=== PATIENT | male | born 1945 | race Asian ===

== ENCOUNTER 2019-09-12 20:07 | Inpatient (IN) | payer MEDICARE, OTHER ==
[~2019-09-12] VITALS: Ht 165.1 cm; Wt 63.5 kg
[~2019-09-12 20:07] MED LIST: ANTIVERT25 MG ORAL; D5 1/2NS w/KCl 20mEq 1,000 ML IV SCH; VALIUM2 MG ORAL
[2019-09-12 20:10] VITALS: BP 131/94
--- NOTE | 2019-09-12 20:13 | Emergency Room Report ---
History of Present Illness General Chief Complaint: Vomiting Source: Patient (Jose Maria Padilla MD) Present Illness HPI 74-year-old male history of hypertension history of gastric ulcers presents with acute nausea vomiting and coughing x2 days no fevers no chills no chest pain or shortness of breath no known aggravating relieving factors severity is moderate, constant patient presents for evaluation (Jos eMaria Padilla MD) Allergies: Coded Allergies: No Known Allergies (Unverified , 09/12/19) COVID-19 Screening Contact w/high risk pt: No Recent Travel to affected area: No Experienced COVID-19 symptoms?: No (Jose Maria Padilla MD) Patient History Past Medical History: see triage record Reviewed Nursing Documentation: PMH: Agreed; PSxH: Agreed (Jose Maria Padilla MD) Nursing Documentation-PMH Hx Hypertension: Yes - hdl Hx Diabetes: Yes (Jose Maria Padilla MD) Review of Systems All Other Systems: negative except mentioned in HPI (Jose Maria Padilla MD) Physical Exam Vital Signs Date Time Temp Pulse Resp B/P (MAP) Pulse Ox O2 Delivery O2 Flow Rate FiO2 09/12/19 20:04 98.2 100 18 131/94 (106) 98 Room Air Sp02 EP Interpretation: reviewed, normal General Appearance: well appearing, no apparent distress, alert Head: normocephalic, atraumatic Eyes: bilateral eye PERRL, bilateral eye EOMI ENT: uvula midline, moist mucus membranes Neck: supple, thyroid normal, supple/symm/no masses Respiratory: lungs clear, no respiratory distress, no retraction, no accessory muscle use Cardiovascular #1: normal peripheral pulses, regular rate, rhythm, no edema, no gallop, no murmur Gastrointestinal: soft, no guarding, no rebound, tenderness - epigastrically Musculoskeletal: normal inspection Neurologic: alert, oriented x3 Psychiatric: mood/affect normal Skin: no rash, warm/dry (Jose Maria Padilla MD) Medical Decision Making Diagnostic Impression: Primary Impression: Vomiting Qualified Codes: R11.10 - Vomiting, unspecified Additional Impressions: Intractable abdominal pain Pancreatitis Qualified Codes: K85.90 - Acute pancreatitis without necrosis or infection, unspecified Duodenitis ER Course 74-year-old male presents with epigastric pain differential diagnosis includes pancreatitis, duodenitis, ACS EKG unremarkable CT scan shows duodenitis Patient admitted to Dr. Garnett for pain control and supportive care. Laboratory Tests Test 09/12/19 20:22 09/12/19 21:45 09/12/19 21:55 09/13/19 06:30 White Blood Count 13.1 K/UL (4.8-10.8) H 9.9 K/UL (4.8-10.8) Red Blood Count 4.67 M/UL (4.70-6.10) L 3.85 M/UL (4.70-6.10) L Hemoglobin 14.4 G/DL (14.2-18.0) 12.3 G/DL (14.2-18.0) L Hematocrit 43.1 % (42.0-52.0) 34.9 % (42.0-52.0) L Mean Corpuscular Volume 92 FL (80-99) 91 FL (80-99) Mean Corpuscular Hemoglobin 30.9 PG (27.0-31.0) 32.0 PG (27.0-31.0) H Mean Corpuscular Hemoglobin Concent 33.4 G/DL (32.0-36.0) 35.3 G/DL (32.0-36.0) Red Cell Distribution Width 11.9 % (11.6-14.8) 10.8 % (11.6-14.8) L Platelet Count 307 K/UL (150-450) 254 K/UL (150-450) Mean Platelet Volume 6.2 FL (6.5-10.1) L 5.0 FL (6.5-10.1) L Neutrophils (%) (Auto) 89.6 % (45.0-75.0) H 73.5 % (45.0-75.0) Lymphocytes (%) (Auto) 6.8 % (20.0-45.0) L 15.5 % (20.0-45.0) L Monocytes (%) (Auto) 3.2 % (1.0-10.0) 10.2 % (1.0-10.0) H Eosinophils (%) (Auto) 0.0 % (0.0-3.0) 0.3 % (0.0-3.0) Basophils (%) (Auto) 0.5 % (0.0-2.0) 0.5 % (0.0-2.0) Sodium Level 140 MMOL/L (136-145) 141 MMOL/L (136-145) Potassium Level 3.4 MMOL/L (3.5-5.1) L 3.7 MMOL/L (3.5-5.1) Chloride Level 95 MMOL/L (98-107) L 104 MMOL/L (98-107) Carbon Dioxide Level 27 MMOL/L (21-32) 30 MMOL/L (21-32) Anion Gap 18 mmol/L (5-15) H 7 mmol/L (5-15) Blood Urea Nitrogen 33 mg/dL (7-18) H 31 mg/dL (7-18) H Creatinine 1.6 MG/DL (0.55-1.30) H 1.3 MG/DL (0.55-1.30) Estimated Glomerular Filtration Rate 42.5 mL/min (>60) 54.0 mL/min (>60) Glucose Level 238 MG/DL (74-106) H 158 MG/DL (74-106) H Lactic Acid Level 2.80 mmol/L (0.4-2.0) H 2.20 mmol/L (0.66-2.22) 1.50 mmol/L (0.4-2.0) Calcium Level 9.9 MG/DL (8.5-10.1) 8.6 MG/DL (8.5-10.1) Total Bilirubin 1.5 MG/DL (0.2-1.0) H Direct Bilirubin 0.2 MG/DL (0.0-0.3) Aspartate Amino Transferase (AST) 17 U/L (15-37) Alanine Aminotransferase (ALT) 19 U/L (12-78) Alkaline Phosphatase 65 U/L (46-116) Troponin I 0.003 ng/mL (0.000-0.056) 0.017 ng/mL (0.000-0.056) Pro-B-Type Natriuretic Peptide 154 pg/mL (0-125) H Total Protein 8.7 G/DL (6.4-8.2) H Albumin 5.1 G/DL (3.4-5.0) H Globulin 3.6 g/dL Albumin/Globulin Ratio 1.4 (1.0-2.7) Lipase 148 U/L (73-393) Urine Color Yellow Urine Appearance Clear Urine pH 6 (4.5-8.0) Urine Specific [place] 1.020 (1.005-1.035) Urine Protein 2+ (NEGATIVE) H Urine Glucose (UA) 3+ (NEGATIVE) H Urine Ketones 3+ (NEGATIVE) H Urine Blood 1+ (NEGATIVE) H Urine Nitrite Negative (NEGATIVE) Urine Bilirubin Negative (NEGATIVE) Urine Urobilinogen 1 MG/DL (0.0-1.0) H Urine Leukocyte Esterase Negative (NEGATIVE) Urine RBC 0-2 /HPF (0 - 0) H Urine WBC 0-2 /HPF (0 - 0) Urine Squamous Epithelial Cells Occasional /LPF Urine Bacteria Few /HPF (NONE) Urine Hyaline Casts 5-10 /LPF (NONE) H Phosphorus Level 3.5 MG/DL (2.5-4.9) Magnesium Level 2.3 MG/DL (1.8-2.4) (Jose Maria Padilla MD) ER Course Please refer to the initial note for the history exam and presentation Patient's blood work at this time reveals elevated BUN and creatinine CT imaging does not show any obvious acute process does have to be done without contrast given the patient's blood work symptoms are starting to improve and patient admitted for further care Labs Test 09/12/19 20:22 09/12/19 21:45 09/12/19 21:55 09/13/19 06:30 White Blood Count 13.1 K/UL (4.8-10.8) 9.9 K/UL (4.8-10.8) Red Blood Count 4.67 M/UL (4.70-6.10) 3.85 M/UL (4.70-6.10) Hemoglobin 14.4 G/DL (14.2-18.0) 12.3 G/DL (14.2-18.0) Hematocrit 43.1 % (42.0-52.0) 34.9 % (42.0-52.0) Mean Corpuscular Volume 92 FL (80-99) 91 FL (80-99) Mean Corpuscular Hemoglobin 30.9 PG (27.0-31.0) 32.0 PG (27.0-31.0) Mean Corpuscular Hemoglobin Concent 33.4 G/DL (32.0-36.0) 35.3 G/DL (32.0-36.0) Red Cell Distribution Width 11.9 % (11.6-14.8) 10.8 % (11.6-14.8) Platelet Count 307 K/UL (150-450) 254 K/UL (150-450) Mean Platelet Volume 6.2 FL (6.5-10.1) 5.0 FL (6.5-10.1) Neutrophils (%) (Auto) 89.6 % (45.0-75.0) 73.5 % (45.0-75.0) Lymphocytes (%) (Auto) 6.8 % (20.0-45.0) 15.5 % (20.0-45.0) Monocytes (%) (Auto) 3.2 % (1.0-10.0) 10.2 % (1.0-10.0) Eosinophils (%) (Auto) 0.0 % (0.0-3.0) 0.3 % (0.0-3.0) Basophils (%) (Auto) 0.5 % (0.0-2.0) 0.5 % (0.0-2.0) Sodium Level 140 MMOL/L (136-145) 141 MMOL/L (136-145) Potassium Level 3.4 MMOL/L (3.5-5.1) 3.7 MMOL/L (3.5-5.1) Chloride Level 95 MMOL/L (98-107) 104 MMOL/L (98-107) Carbon Dioxide Level 27 MMOL/L (21-32) 30 MMOL/L (21-32) Anion Gap 18 mmol/L (5-15) 7 mmol/L (5-15) Blood Urea Nitrogen 33 mg/dL (7-18) 31 mg/dL (7-18) Creatinine 1.6 MG/DL (0.55-1.30) 1.3 MG/DL (0.55-1.30) Estimat Glomerular Filtration Rate 42.5 mL/min (>60) 54.0 mL/min (>60) Glucose Level 238 MG/DL (74-106) 158 MG/DL (74-106) Lactic Acid Level 2.80 mmol/L (0.4-2.0) 2.20 mmol/L (0.66-2.22) 1.50 mmol/L (0.4-2.0) Calcium Level 9.9 MG/DL (8.5-10.1) 8.6 MG/DL (8.5-10.1) Total Bilirubin 1.5 MG/DL (0.2-1.0) Direct Bilirubin 0.2 MG/DL (0.0-0.3) Aspartate Amino Transf (AST/SGOT) 17 U/L (15-37) Alanine Aminotransferase (ALT/SGPT) 19 U/L (12-78) Alkaline Phosphatase 65 U/L (46-116) Troponin I 0.003 ng/mL (0.000-0.056) 0.017 ng/mL (0.000-0.056) Pro-B-Type Natriuretic Peptide 154 pg/mL (0-125) Total Protein 8.7 G/DL (6.4-8.2) Albumin 5.1 G/DL (3.4-5.0) Globulin 3.6 g/dL Albumin/Globulin Ratio 1.4 (1.0-2.7) Lipase 148 U/L (73-393) Urine Color Yellow Urine Appearance Clear Urine pH 6 (4.5-8.0) Urine Specific [place] 1.020 (1.005-1.035) Urine Protein 2+ (NEGATIVE) Urine Glucose (UA) 3+ (NEGATIVE) Urine Ketones 3+ (NEGATIVE) Urine Blood 1+ (NEGATIVE) Urine Nitrite Negative (NEGATIVE) Urine Bilirubin Negative (NEGATIVE) Urine Urobilinogen 1 MG/DL (0.0-1.0) Urine Leukocyte Esterase Negative (NEGATIVE) Urine RBC 0-2 /HPF (0 - 0) Urine WBC 0-2 /HPF (0 - 0) Urine Squamous Epithelial Cells Occasional /LPF Urine Bacteria Few /HPF (NONE) Urine Hyaline Casts 5-10 /LPF (NONE) Phosphorus Level 3.5 MG/DL (2.5-4.9) Magnesium Level 2.3 MG/DL (1.8-2.4) Test 09/14/19 06:40 White Blood Count 6.1 K/UL (4.8-10.8) Red Blood Count 3.74 M/UL (4.70-6.10) Hemoglobin 11.9 G/DL (14.2-18.0) Hematocrit 33.7 % (42.0-52.0) Mean Corpuscular Volume 90 FL (80-99) Mean Corpuscular Hemoglobin 31.7 PG (27.0-31.0) Mean Corpuscular Hemoglobin Concent 35.2 G/DL (32.0-36.0) Red Cell Distribution Width 10.7 % (11.6-14.8) Platelet Count 218 K/UL (150-450) Mean Platelet Volume 5.5 FL (6.5-10.1) Neutrophils (%) (Auto) 63.4 % (45.0-75.0) Lymphocytes (%) (Auto) 23.4 % (20.0-45.0) Monocytes (%) (Auto) 8.8 % (1.0-10.0) Eosinophils (%) (Auto) 3.1 % (0.0-3.0) Basophils (%) (Auto) 1.2 % (0.0-2.0) Sodium Level 141 MMOL/L (136-145) Potassium Level 4.0 MMOL/L (3.5-5.1) Chloride Level 106 MMOL/L (98-107) Carbon Dioxide Level 25 MMOL/L (21-32) Anion Gap 10 mmol/L (5-15) Blood Urea Nitrogen 15 mg/dL (7-18) Creatinine 1.1 MG/DL (0.55-1.30) Estimat Glomerular Filtration Rate > 60 mL/min (>60) Glucose Level 160 MG/DL (74-106) Calcium Level 8.3 MG/DL (8.5-10.1) Magnesium Level 2.2 MG/DL (1.8-2.4) Total Bilirubin 0.9 MG/DL (0.2-1.0) Aspartate Amino Transf (AST/SGOT) 18 U/L (15-37) Alanine Aminotransferase (ALT/SGPT) 14 U/L (12-78) Alkaline Phosphatase 47 U/L (46-116) Total Protein 6.6 G/DL (6.4-8.2) Albumin 3.5 G/DL (3.4-5.0) Globulin 3.1 g/dL Albumin/Globulin Ratio 1.1 (1.0-2.7) Lipase 185 U/L (73-393) (Jamehdor,Ali DO) EKG Diagnostic Results EKG Time: 20:18 EP Interpretation: NSR rate 94 qtc 415, no acute st elevations, normal axis (Jose Maria Padilla MD) Rhythm Strip Diag. Results Rhythm Strip Time: 20:52 EP Interpretation: yes Rate: 94 Rhythm: NSR, no PVC's, no ectopy (Jose Maria Padilla MD) EP Interpretation: yes Rate: 77 Rhythm: NSR, no PVC's, no ectopy (Joshua Doss DO) Chest X-Ray Diagnostic Results Chest X-Ray Diagnostic Results : Chest X-Ray Ordered: Yes # of Views/Limited/Complete: 1 View Indication: Chest Pain EP Interpretation: Yes Interpretation: no consolidation, no effusion, no pneumothorax, no acute cardiopulmonary disease Impression: No acute disease Electronically Signed by: Jose Maria Padilla MD (Jose Maria Padilla MD) Chest X-Ray Diagnostic Results : Chest X-Ray Ordered: Yes # of Views/Limited/Complete: 1 View Indication: Chest Pain EP Interpretation: Yes Interpretation: no consolidation, no effusion, no pneumothorax Impression: No acute disease Electronically Signed by: Joshua Doss DO (Joshua Doss DO) CT/MRI/US Diagnostic Results CT/MRI/US Diagnostic Results : Impression Procedure: CT Chest Abdomen Pelvis wo Con Indication: Chest and abdominal pain, hypertension, gastric ulcers, coughing and nausea and vomiting. Technique: Noncontrast CT of the chest, abdomen and pelvis utilizing automated exposure control. Axial, sagittal and coronal reformats presented. CT dose: Total DLP 298.2 mGycm; CTDI vol 4.5 mGy (CT dose information archived in PACs) Comparison: None Findings: Please note that evaluation of the vasculature, mediastinal structures and abdominal/pelvic viscera is limited without the use of intravenous and oral contrast. Within these limitations the following observations are made: CT chest: Mild emphysematous changes are noted. There is dependent atelectasis in the lung bases. There is also mild scarring and bronchiectasis, most pronounced in the right lower lobe. There is a 7 mm nodule in the right lower lobe (axial lung window series image #56). Additional 3 mm ovoid nodule in the lingula (axial lung windows series image #53). There is no pleural effusion or pneumothorax. Heart size within normal limits. There is no pericardial effusion. There are coronary arterial calcifications. Possibility of indwelling coronary arterial stents can be considered and correlation with history is recommended. The abdominal aorta is normal in caliber with overall mild atherosclerotic calcification. Main pulmonary artery appears normal in caliber. No bulky/conglomerate mediastinal lymphadenopathy is appreciated. Mild degenerative changes in the thoracic spine. No acute fractures identified. A suture anchor is noted within the right humeral head suggesting prior rotator cuff surgery. Correlation with surgical history recommended. CT abdomen pelvis: Noncontrast evaluation of the liver, spleen, adrenal glands grossly unremarkable. No CT evident gallstones or pericholecystic inflammatory changes. No appreciable biliary ductal dilatation. Mild age-related atrophy of the pancreas. Nonspecific bilateral perinephric stranding is noted. No urinary tract stone or hydronephrosis. Bladder wall thickening likely related to underdistention. Correlation with urinalysis recommended to exclude cystitis. Prostate is enlarged and heterogeneous, particularly the central gland, which exerts mass effect on the posterior aspect of the bladder. Very subtle inflammatory stranding is noted about the proximal duodenum (first and second portions) which may be related to mild duodenitis and/or given history of peptic ulcer disease. No evidence of small bowel obstruction. No free intraperitoneal air or fluid. The appendix is not definitively visualized however there are no focal pericecal inflammatory changes. The abdominal aorta is normal in caliber with overall moderate atherosclerotic calcification. A possible partially calcified splenic artery aneurysm is noted measuring 6 to 7 mm. There is no pathologically enlarged/conglomerate lymphadenopathy. There are multilevel degenerative changes of the spine with disc space narrowing, endplate sclerosis and productive changes. No acute fracture is identified. COMBINED IMPRESSION: Limited exam without intravenous and oral contrast above. Within these limitations: * Mild emphysematous disease with mild scarring and bronchiectasis in the lower lobes. * 7 mm nodule in the right middle lobe and 3 mm nodule in the lingula. Follow- up per Fleischner Society criteria guidelines. * Very subtle inflammatory stranding about the proximal duodenum (first and second portions) related to a mild duodenitis and/or given history of peptic ulcer disease. * Given vicinity of these subtle inflammatory changes the pancreatic head consider correlation with pancreatic enzymes. Remainder the pancreas is without evidence of peripancreatic inflammatory changes. * No free intraperitoneal air or fluid. * Bladder wall thickening which may be related to underdistention versus cystitis. Correlation with urinalysis recommended. * Enlarged and heterogeneous prostate likely on the basis of BPH however correlation with prostate exam and PSA recommended. * Coronary arterial calcifications and atherosclerotic vascular calcifications. * Probable subcentimeter partially calcified splenic artery aneurysm (6 to 7 mm ). Additional findings as above. Fleishner Society Guideline 2017: Solitary nodule size: 6-8 mm -low-risk patients: follow-up at 6-12 months, then consider further follow-up at 18-24 months -high-risk patients: initial follow-up CT at 6-12 months and then at 18-24 months if no change EXCLUSIONS: 1. Patients aged 35 years or younger 2. Patients with known malignancy 3. Immunocompromised patients 4. Lung cancer screening population Low-risk patients: a minimal or absent history of smoking and or other known risk factors High-risk patients: a history of smoking or of other known risk factors (e.g. first degree relative with lung cancer, or exposure to asbestos, radon, uranium). The CT scanner at [facility] is accredited by the [employer] and the scans are performed using protocols designed to limit radiation exposure to as low as reasonably achievable to attain images of sufficient resolution adequate for diagnostic evaluation. Dictated By: Griffin Gonzales M.D. Electronically Signed By: Griffin Gonzales M.D. Signed Date/Time 09/13/19 0941 CC: Jose Maria Padilla MD; Juan Garnett MD (Jose Maria Padilla MD) CT/MRI/US Diagnostic Results : Impression CT chest abdomen pelvisLimited exam without intravenous and oral contrast above. Within these limitations: * Mild emphysematous disease with mild scarring and bronchiectasis in the lower lobes. * 7 mm nodule in the right middle lobe and 3 mm nodule in the lingula. Follow- up per Fleischner Society criteria guidelines. * Very subtle inflammatory stranding about the proximal duodenum (first and second portions) related to a mild duodenitis and/or given history of peptic ulcer disease. * Given vicinity of these subtle inflammatory changes the pancreatic head consider correlation with pancreatic enzymes. Remainder the pancreas is without evidence of peripancreatic inflammatory changes. * No free intraperitoneal air or fluid. * Bladder wall thickening which may be related to underdistention versus cystitis. Correlation with urinalysis recommended. * Enlarged and heterogeneous prostate likely on the basis of BPH however correlation with prostate exam and PSA recommended. * Coronary arterial calcifications and atherosclerotic vascular calcifications. * Probable subcentimeter partially calcified splenic artery aneurysm (6 to 7 mm ). Additional findings as above. Fleishner Society Guideline 2017: Solitary nodule size: 6-8 mm -low-risk patients: follow-up at 6-12 months, then consider further follow-up at 18-24 months -high-risk patients: initial follow-up CT at 6-12 months and then at 18-24 months if no change (Joshua Doss DO) Last Vital Signs Date Time Temp Pulse Resp B/P (MAP) Pulse Ox O2 Delivery O2 Flow Rate FiO2 09/12/19 20:04 98.2 100 18 131/94 (106) 98 Room Air (Jose Maria Padlila MD) Status: improved (Joshua Doss DO) Disposition: ADMITTED INPATIENT Condition: Serious Jose Maria Padilla MD Sep 12, 2019 20:13 Joshua Doss DO Sep 13, 2019 06:22
[2019-09-12] MEDS ORDERED: cefTRIAXone 1 GM in NS 55 ML IVPB ONE (20:15)
[2019-09-12] MEDS ORDERED: Morphine Sulfate 4mg/ml Inj (IV USE ONLY) IVP ONE (20:15)
[2019-09-12] MEDS ORDERED: Mylanta II UD 30ml ORAL ONE (20:15)
[2019-09-12] MEDS ORDERED: Omnipaque-300 100ml vial INJ PRN (20:15)
[2019-09-12] MEDS ORDERED: Omnipaque-300 100ml vial INJ ONE (20:15)
[2019-09-12] MEDS ORDERED: Morphine Sulfate 4mg/ml Inj (IV USE ONLY) ONE (20:53)
[2019-09-12] MEDS ORDERED: Mylanta II UD 30ml ONE (20:53)
[2019-09-12 21:08] LABS: HEMATOCRIT 43.1 % (42.0-52.0); HEMOGLOBIN 14.4 G/DL (14.2-18.0); MEAN CORPUSCULAR VOLUME 92 FL (80-99); PLATELET COUNT 307 K/UL (150-450); RED BLOOD COUNT 4.67 M/UL (4.70-6.10); RED CELL DISTRIBUTION WIDTH 11.9 % (11.6-14.8); WHITE BLOOD COUNT 13.1 K/UL (4.8-10.8)
[2019-09-12 21:12] LABS: BASOPHILS % (AUTO) 0.5 % (0.0-2.0); LYMPHOCYTES % (AUTO) 6.8 % (20.0-45.0); MONOCYTES % (AUTO) 3.2 % (1.0-10.0); NEUTROPHILS % (AUTO) 89.6 % (45.0-75.0)
[2019-09-12 21:46] LABS: ANION GAP 18 mmol/L (5-15); BLOOD UREA NITROGEN 33 mg/dL (7-18); CALCIUM 9.9 MG/DL (8.5-10.1); CARBON DIOXIDE 27 MMOL/L (21-32); CHLORIDE 95 MMOL/L (98-107); CREATININE 1.6 MG/DL (0.55-1.30); POTASSIUM 3.4 MMOL/L (3.5-5.1); SODIUM 140 MMOL/L (136-145)
[2019-09-12 21:56] LABS: ALANINE AMINOTRANSFERASE 19 U/L (12-78); ALBUMIN 5.1 G/DL (3.4-5.0); ALBUMIN/GLOBULIN RATIO 1.4 (1.0-2.7); ALKALINE PHOSPHATASE 65 U/L (46-116); ASPARTATE AMINO TRANSFERASE 17 U/L (15-37); BILIRUBIN,TOTAL 1.5 MG/DL (0.2-1.0)
[2019-09-12 21:58] LABS: BILIRUBIN,DIRECT 0.2 MG/DL (0.0-0.3)
[2019-09-12 22:04] LABS: APPEARANCE,URINE CLEAR; BILIRUBIN, URINE NEGATIVE (NEGATIVE); GLUCOSE, URINE (UA) 3+ (NEGATIVE); KETONES,URINE 3+ (NEGATIVE); LEUKOCYTE ESTERASE ,URINE NEGATIVE (NEGATIVE); NITRITE,URINE NEGATIVE (NEGATIVE); PH,URINE 6 (4.5-8.0); PROTEIN,URINE 2+ (NEGATIVE); UROBILINOGEN,URINE 1 MG/DL (0.0-1.0)
[2019-09-12 22:07] LABS: COLOR,URINE YELLOW
[2019-09-12 22:45] VITALS: BP 125/89
[2019-09-13] MEDS: D5 1/2NS w/KCl 20mEq 1,000 ML IV SCH ×3 (06:15→18:00)
[2019-09-13] MEDS ORDERED: D5 1/2NS w/KCl 20mEq 1,000 ML IV SCH ×2 (06:15→18:51)
[2019-09-13] MEDS ORDERED: GLUCOPHAGE1000 MG ORAL (06:28)
[2019-09-13] MEDS ORDERED: JANUVIA25 MG ORAL (06:28)
[2019-09-13] MEDS ORDERED: LOSARTAN POTAS100 MG ORAL (06:29)
[2019-09-13] MEDS ORDERED: LIPITOR80 MG ORAL (06:30)
[2019-09-13] MEDS ORDERED: SEROQUEL50 MG ORAL (06:31)
[2019-09-13] MEDS ORDERED: TRAMADOL HCL50 MG ORAL (06:32)
[2019-09-13] MEDS ORDERED: OMEPRAZOLE10 M1 ORAL (06:34)
[2019-09-13] MEDS ORDERED: traMADol 50mg tab ORAL PRN ×2 (06:45→18:51)
[2019-09-13 07:01] LABS: BASOPHILS % (AUTO) 0.5 % (0.0-2.0); EOSINOPHILS % (AUTO) 0.3 % (0.0-3.0); HEMATOCRIT 34.9 % (42.0-52.0); HEMOGLOBIN 12.3 G/DL (14.2-18.0); LYMPHOCYTES % (AUTO) 15.5 % (20.0-45.0); MEAN CORPUSCULAR VOLUME 91 FL (80-99); MONOCYTES % (AUTO) 10.2 % (1.0-10.0); NEUTROPHILS % (AUTO) 73.5 % (45.0-75.0); PLATELET COUNT 254 K/UL (150-450); RED BLOOD COUNT 3.85 M/UL (4.70-6.10); RED CELL DISTRIBUTION WIDTH 10.8 % (11.6-14.8); WHITE BLOOD COUNT 9.9 K/UL (4.8-10.8)
[2019-09-13 07:14] LABS: ANION GAP 7 mmol/L (5-15); BLOOD UREA NITROGEN 31 mg/dL (7-18); CALCIUM 8.6 MG/DL (8.5-10.1); CARBON DIOXIDE 30 MMOL/L (21-32); CHLORIDE 104 MMOL/L (98-107); CREATININE 1.3 MG/DL (0.55-1.30); PHOSPHORUS 3.5 MG/DL (2.5-4.9); POTASSIUM 3.7 MMOL/L (3.5-5.1); SODIUM 141 MMOL/L (136-145)
[2019-09-13 08:00] VITALS: BP 127/80
[2019-09-13] MEDS ORDERED: Heparin 5000 units/ml inj SUBQ SCH (09:00)
--- NOTE | 2019-09-13 11:27 | Diagnostic Imaging Report ---
Indication: Chest and abdominal pain, hypertension, gastric ulcers, coughing and nausea and vomiting. Technique: Noncontrast CT of the chest, abdomen and pelvis utilizing automated exposure control. Axial, sagittal and coronal reformats presented. CT dose: Total DLP 298.2 mGycm; CTDI vol 4.5 mGy (CT dose information archived in PACs) Comparison: None Findings: Please note that evaluation of the vasculature, mediastinal structures and abdominal/pelvic viscera is limited without the use of intravenous and oral contrast. Within these limitations the following observations are made: CT chest: Mild emphysematous changes are noted. There is dependent atelectasis in the lung bases. There is also mild scarring and bronchiectasis, most pronounced in the right lower lobe. There is a 7 mm nodule in the right lower lobe (axial lung window series image #56). Additional 3 mm ovoid nodule in the lingula (axial lung windows series image #53). There is no pleural effusion or pneumothorax. Heart size within normal limits. There is no pericardial effusion. There are coronary arterial calcifications. Possibility of indwelling coronary arterial stents can be considered and correlation with history is recommended. The abdominal aorta is normal in caliber with overall mild atherosclerotic calcification. Main pulmonary artery appears normal in caliber. No bulky/conglomerate mediastinal lymphadenopathy is appreciated. Mild degenerative changes in the thoracic spine. No acute fractures identified. A suture anchor is noted within the right humeral head suggesting prior rotator cuff surgery. Correlation with surgical history recommended. CT abdomen pelvis: Noncontrast evaluation of the liver, spleen, adrenal glands grossly unremarkable. No CT evident gallstones or pericholecystic inflammatory changes. No appreciable biliary ductal dilatation. Mild age-related atrophy of the pancreas. Nonspecific bilateral perinephric stranding is noted. No urinary tract stone or hydronephrosis. Bladder wall thickening likely related to underdistention. Correlation with urinalysis recommended to exclude cystitis. Prostate is enlarged and heterogeneous, particularly the central gland, which exerts mass effect on the posterior aspect of the bladder. Very subtle inflammatory stranding is noted about the proximal duodenum (first and second portions) which may be related to mild duodenitis and/or given history of peptic ulcer disease. No evidence of small bowel obstruction. No free intraperitoneal air or fluid. The appendix is not definitively visualized however there are no focal pericecal inflammatory changes. The abdominal aorta is normal in caliber with overall moderate atherosclerotic calcification. A possible partially calcified splenic artery aneurysm is noted measuring 6 to 7 mm. There is no pathologically enlarged/conglomerate lymphadenopathy. There are multilevel degenerative changes of the spine with disc space narrowing, endplate sclerosis and productive changes. No acute fracture is identified. COMBINED IMPRESSION: Limited exam without intravenous and oral contrast above. Within these limitations: * Mild emphysematous disease with mild scarring and bronchiectasis in the lower lobes. * 7 mm nodule in the right middle lobe and 3 mm nodule in the lingula. Follow-up per Fleischner Society criteria guidelines. * Very subtle inflammatory stranding about the proximal duodenum (first and second portions) related to a mild duodenitis and/or given history of peptic ulcer disease. * Given vicinity of these subtle inflammatory changes the pancreatic head consider correlation with pancreatic enzymes. Remainder the pancreas is without evidence of peripancreatic inflammatory changes. * No free intraperitoneal air or fluid. * Bladder wall thickening which may be related to underdistention versus cystitis. Correlation with urinalysis recommended. * Enlarged and heterogeneous prostate likely on the basis of BPH however correlation with prostate exam and PSA recommended. * Coronary arterial calcifications and atherosclerotic vascular calcifications. * Probable subcentimeter partially calcified splenic artery aneurysm (6 to 7 mm). Additional findings as above. Fleishner Society Guideline 2017: Solitary nodule size: 6-8 mm -low-risk patients: follow-up at 6-12 months, then consider further follow-up at 18-24 months -high-risk patients: initial follow-up CT at 6-12 months and then at 18-24 months if no change EXCLUSIONS: 1. Patients aged 35 years or younger 2. Patients with known malignancy 3. Immunocompromised patients 4. Lung cancer screening population Low-risk patients: a minimal or absent history of smoking and or other known risk factors High-risk patients: a history of smoking or of other known risk factors (e.g. first degree relative with lung cancer, or exposure to asbestos, radon, uranium). The CT scanner at [facility] is accredited by the [employer] and the scans are performed using protocols designed to limit radiation exposure to as low as reasonably achievable to attain images of sufficient resolution adequate for diagnostic evaluation.
--- NOTE | 2019-09-13 11:27 | Diagnostic Imaging Report ---
Indication: Chest pain Technique: XRAY Chest 1v Comparison: 11/08/2012 Findings: Heart size and mediastinal contours are within normal limits for AP technique. There are atherosclerotic vascular calcifications in a slightly tortuous aorta. There is no focal airspace consolidation, pneumothorax or pleural effusion. Degenerative changes noted in the spine. Osseous structures demonstrate no acute abnormality. Impression: No radiographic evidence of acute cardiopulmonary disease.
[2019-09-13 12:00] VITALS: BP 118/54
[2019-09-13] MEDS ORDERED: Losartan 50mg tab ORAL SCH (12:30)
[2019-09-13] MEDS ORDERED: Promethazine/Codeine 5ml UD ORAL PRN ×2 (12:45→18:51)
--- NOTE | 2019-09-13 12:47 | Consultation ---
History of Present Illness General Date patient seen: Sep 13, 2019 Chief Complaint: Vomiting Present Illness HPI 74-year-old male history of HTN, gastric ulcers presents with acute nausea vomiting and coughing x2 days. He had no fevers no chills no chest pain or shortness of breath. He had CT chest, abdomen and Pelvis in ER which showed 2 pulmonary nodules and some emphysematic changes. He is admitted for further management. Allergies: Coded Allergies: No Known Allergies (Unverified , 09/12/19) Medication History Scheduled Atorvastatin (Lipitor), 10 MG ORAL BEDTIME, (Reported) Losartan Potassium (Losartan Potassium), 30 MG ORAL DAILY, (Reported) Metformin Hcl (Glucophage), 800 MG ORAL BID, (Reported) Omeprazole (Omeprazole), 10 MG ORAL DAILY, (Reported) Quetiapine Fumarate (Seroquel), 50 MG ORAL DAILY, (Reported) Sitagliptin* (Januvia*), 100 MG ORAL DAILY, (Reported) Scheduled PRN Tramadol Hcl* (Ultram*), 50 MG ORAL Q6H PRN for For Pain, (Reported) Discontinued Medications Diazepam* (Valium*), 2 MG ORAL Q8HR Discontinued Reason: Pt stopped taking med Meclizine Hcl* (Antivert*), 25 MG ORAL Q8HR Discontinued Reason: Pt stopped taking med Patient History Healthcare decision maker Resuscitation status Advanced Directive on File Past Medical/Surgical History Past Medical/Surgical History: (1) History of hypertension (2) Depression (3) Diabetes mellitus Review of Systems All Other Systems: negative except mentioned in HPI Physical Exam General Appearance: WD/WN Lines, tubes and drains: peripheral HEENT: normocephalic, atraumatic Neck: non-tender, normal alignment Respiratory/Chest: chest wall non-tender, lungs clear Cardiovascular/Chest: normal peripheral pulses, normal rate Abdomen: normal bowel sounds, non tender Genitourinary/Rectal: normal genital exam Extremities: normal range of motion Skin Exam: normal pigmentation Last 24 Hour Vital Signs Date Time Temp Pulse Resp B/P (MAP) Pulse Ox O2 Delivery O2 Flow Rate FiO2 09/13/19 09:00 Room Air 09/13/19 08:00 98.7 90 17 127/80 (96) 97 09/13/19 07:57 74 09/12/19 22:45 98.3 92 16 125/89 98 Room Air 3/26/20 20:10 100 18 Room Air 09/12/19 20:10 98.3 100 18 131/94 98 Room Air 09/12/19 20:04 98.2 100 18 131/94 (106) 98 Room Air Intake and Output 09/12/19 09/13/19 19:00 07:00 Intake Total 0 ml Balance 0 ml Intake Oral 0 ml Laboratory Tests Test 09/12/19 20:22 09/12/19 21:45 09/12/19 21:55 09/13/19 06:30 White Blood Count 13.1 K/UL (4.8-10.8) H 9.9 K/UL (4.8-10.8) Red Blood Count 4.67 M/UL (4.70-6.10) L 3.85 M/UL (4.70-6.10) L Hemoglobin 14.4 G/DL (14.2-18.0) 12.3 G/DL (14.2-18.0) L Hematocrit 43.1 % (42.0-52.0) 34.9 % (42.0-52.0) L Mean Corpuscular Volume 92 FL (80-99) 91 FL (80-99) Mean Corpuscular Hemoglobin 30.9 PG (27.0-31.0) 32.0 PG (27.0-31.0) H Mean Corpuscular Hemoglobin Concent 33.4 G/DL (32.0-36.0) 35.3 G/DL (32.0-36.0) Red Cell Distribution Width 11.9 % (11.6-14.8) 10.8 % (11.6-14.8) L Platelet Count 307 K/UL (150-450) 254 K/UL (150-450) Mean Platelet Volume 6.2 FL (6.5-10.1) L 5.0 FL (6.5-10.1) L Neutrophils (%) (Auto) 89.6 % (45.0-75.0) H 73.5 % (45.0-75.0) Lymphocytes (%) (Auto) 6.8 % (20.0-45.0) L 15.5 % (20.0-45.0) L Monocytes (%) (Auto) 3.2 % (1.0-10.0) 10.2 % (1.0-10.0) H Eosinophils (%) (Auto) 0.0 % (0.0-3.0) 0.3 % (0.0-3.0) Basophils (%) (Auto) 0.5 % (0.0-2.0) 0.5 % (0.0-2.0) Sodium Level 140 MMOL/L (136-145) 141 MMOL/L (136-145) Potassium Level 3.4 MMOL/L (3.5-5.1) L 3.7 MMOL/L (3.5-5.1) Chloride Level 95 MMOL/L (98-107) L 104 MMOL/L (98-107) Carbon Dioxide Level 27 MMOL/L (21-32) 30 MMOL/L (21-32) Anion Gap 18 mmol/L (5-15) H 7 mmol/L (5-15) Blood Urea Nitrogen 33 mg/dL (7-18) H 31 mg/dL (7-18) H Creatinine 1.6 MG/DL (0.55-1.30) H 1.3 MG/DL (0.55-1.30) Estimat Glomerular Filtration Rate 42.5 mL/min (>60) 54.0 mL/min (>60) Glucose Level 238 MG/DL (74-106) H 158 MG/DL (74-106) H Lactic Acid Level 2.80 mmol/L (0.4-2.0) H 2.20 mmol/L (0.66-2.22) 1.50 mmol/L (0.4-2.0) Calcium Level 9.9 MG/DL (8.5-10.1) 8.6 MG/DL (8.5-10.1) Total Bilirubin 1.5 MG/DL (0.2-1.0) H Direct Bilirubin 0.2 MG/DL (0.0-0.3) Aspartate Amino Transf (AST/SGOT) 17 U/L (15-37) Alanine Aminotransferase (ALT/SGPT) 19 U/L (12-78) Alkaline Phosphatase 65 U/L (46-116) Troponin I 0.003 ng/mL (0.000-0.056) 0.017 ng/mL (0.000-0.056) Pro-B-Type Natriuretic Peptide 154 pg/mL (0-125) H Total Protein 8.7 G/DL (6.4-8.2) H Albumin 5.1 G/DL (3.4-5.0) H Globulin 3.6 g/dL Albumin/Globulin Ratio 1.4 (1.0-2.7) Lipase 148 U/L (73-393) Urine Color Yellow Urine Appearance Clear Urine pH 6 (4.5-8.0) Urine Specific [place] 1.020 (1.005-1.035) Urine Protein 2+ (NEGATIVE) H Urine Glucose (UA) 3+ (NEGATIVE) H Urine Ketones 3+ (NEGATIVE) H Urine Blood 1+ (NEGATIVE) H Urine Nitrite Negative (NEGATIVE) Urine Bilirubin Negative (NEGATIVE) Urine Urobilinogen 1 MG/DL (0.0-1.0) H Urine Leukocyte Esterase Negative (NEGATIVE) Urine RBC 0-2 /HPF (0 - 0) H Urine WBC 0-2 /HPF (0 - 0) Urine Squamous Epithelial Cells Occasional /LPF Urine Bacteria Few /HPF (NONE) Urine Hyaline Casts 5-10 /LPF (NONE) H Phosphorus Level 3.5 MG/DL (2.5-4.9) Magnesium Level 2.3 MG/DL (1.8-2.4) Height (Feet): 5 Height (Inches): 5.00 Weight (Pounds): 140 Medications Current Medications Medications (Trade) Dose Ordered Sig/Jose Angel Route PRN Reason Start Time Stop Time Status Last Admin Dose Admin Atorvastatin Calcium (Lipitor) 10 mg BEDTIME ORAL 09/13/19 21:00 12/12/19 20:59 Dextrose/ Electrolytes 1,000 ml @ 75 mls/hr [id number] IV 09/13/19 00:16 10/13/19 00:15 09/13/19 06:15 Heparin Sodium (Porcine) (Heparin 5000 units/ml) 5,000 units EVERY 12 HOURS SUBQ 09/13/19 09:00 10/28/19 08:59 09/13/19 09:33 Iohexol (OMNIPAQUE-300 100ml) 100 ml NOW PRN INJ Radiology Procedure 09/12/19 20:15 09/14/19 20:04 Losartan Potassium (Cozaar) 50 mg DAILY ORAL 09/13/19 12:30 10/13/19 12:29 Metformin HCl (Glucophage) 500 mg BID ORAL 09/15/19 09:00 10/15/19 08:59 Ondansetron HCl (Zofran) 4 mg Q6H PRN IVP Nausea & Vomiting 09/13/19 00:16 10/13/19 00:15 Pantoprazole (Protonix) 40 mg DAILY ORAL 09/13/19 09:00 10/13/19 08:59 09/13/19 09:34 Quetiapine Fumarate (SEROqueL) 50 mg BEDTIME ORAL 09/13/19 21:00 10/28/19 20:59 Sitagliptin Phosphate (Januvia) 100 mg DAILY ORAL 09/13/19 09:00 10/13/19 08:59 09/13/19 09:33 Tramadol HCl (Ultram) 50 mg Q6H PRN ORAL For Pain 09/13/19 06:45 09/20/19 06:44 Assessment/Plan Problem List: (1) Intractable abdominal pain ICD Codes: R10.9 - Unspecified abdominal pain SNOMED: 10664746 (2) Pulmonary nodule ICD Codes: R91.1 - Solitary pulmonary nodule SNOMED: 237969387 (3) History of hypertension ICD Codes: Z86.79 - Personal history of other diseases of the circulatory system SNOMED: 254975061 (4) Depression ICD Codes: F32.9 - Major depressive disorder, single episode, unspecified SNOMED: 14329606 (5) Diabetes mellitus ICD Codes: E11.9 - Type 2 diabetes mellitus without complications SNOMED: 22200465 Assessment/Plan: NPO IV fluids symptomatic treatment GI evaluation Sliding scale antitussives might need PET study as outpatient. Elijah Lopez MD Sep 13, 2019 12:47
[2019-09-13 16:00] VITALS: BP 121/61
[2019-09-13 19:00] VITALS: BP 107/80
[2019-09-13 20:00] VITALS: BP 133/81
[2019-09-13] MEDS: Theophylline ER 100mg ORAL SCH (20:14)
[2019-09-13] MEDS: Heparin 5000 units/ml inj SUBQ SCH (20:18)
[2019-09-13] MEDS ORDERED: Theophylline ER 100mg ORAL SCH (21:00)
--- NOTE | 2019-09-13 22:24 | History & Physical ---
History and Physical History & Physicial Juan Garnett MD Sep 13, 2019 22:24
[2019-09-13] MEDS: NS w/KCl 20mEq 1000ml 1,000 ML IV SCH (23:00)
[2019-09-14] VITALS: BP 112/62
[2019-09-14] MEDS: NS w/KCl 20mEq 1000ml 1,000 ML IV SCH ×2 (00:42→20:38)
--- NOTE | 2019-09-14 00:44 | History and Physical Report ---
DATE OF ADMISSION: 09/12/2019 CHIEF COMPLAINT: Shortness of breath, vomiting, abdominal pain. HISTORY OF PRESENT ILLNESS: This is a 74-year-old [place] gentleman with past medical history significant for hypertension, dyslipidemia, borderline diabetic, history of GERD, and history of depression, denies any coronary artery disease, history of appendectomy and right shoulder surgery, who presented to emergency room complaining about nausea, vomiting, and coughing for past two days. The patient denies any fever or chills. Denies any chest pain or shortness of breath. CT scan of chest, abdomen and pelvis was done in the ER showed the patient has two pulmonary nodules and some emphysematous changes, and subsequently the patient shortly after initial evaluation in the emergency department, the patient was admitted to the hospital with nausea, vomiting, and abdominal pain. PAST MEDICAL HISTORY/PAST SURGICAL HISTORY: As above, history of hypertension, diabetes type 2, dyslipidemia, gastric ulcer, history of GERD, diabetes type 2, appendectomy, depression, and right shoulder surgery. Denies any history of coronary artery disease. MEDICATIONS: At home, significant for Lipitor 10 mg nightly, Losartan 50 mg daily, metformin 850 mg twice a day, omeprazole 20 mg daily, Seroquel 50 mg nightly, and Januvia 100 mg p.o. daily. ALLERGIES: No known drug allergies. SOCIAL HISTORY: Denies any smoking, alcohol, or drugs. FAMILY HISTORY: Noncontributory. REVIEW OF SYSTEMS: Mostly as above. Denies any dysuria, frequency, or hematuria. Complained of abdominal pain associated with vomiting, occasional dark stool. Denies any hemoptysis or hematochezia. Denies any bright red blood per rectum. The patient's last bowel movement was two days ago. PHYSICAL EXAMINATION: VITAL SIGNS: On admission from the emergency department, temperature 98.2, pulse of 100, respirations 18, and blood pressure 131/94. GENERAL: The patient is awake and responsive, in no acute distress. HEAD AND NECK: Pupils are equal and reactive. Extraocular movements are intact. Neck was supple. No JVD. LUNGS: Good air entry. No wheeze or rales. HEART: S1, S2. Regular rhythm. No gallops. ABDOMEN: Soft and nondistended. Epigastric tenderness on deep palpation. No rebound tenderness. No fluid shift. EXTREMITIES: No cyanosis, clubbing, or edema NEUROLOGIC: Cranial nerves II through XII grossly normal. Motor is 5/5 in all extremities. Gait is intact. RECTAL/GENITOURINARY: Refused and deferred. PSYCHIATRIC: Mood and affect is intact. LABORATORY AND DIAGNOSTIC DATA: On admission, WBC of 13, hemoglobin of 14, hematocrit 43, and platelets 307,000. The patient's sodium 140, potassium 3.4, chloride 95, bicarb 27, BUN 33, and creatinine 1.6. GFR is 42. Total bilirubin of 1.5, AST of 17, ALT of 19. ProBNP of 154. Urinalysis, +2 protein, +3 glucose, +3 ketones. The patient's chest x-ray, no radiographic evidence of acute cardiopulmonary disease. CT of the chest, abdomen and pelvis limited examination. Mild emphysematous disease, mild scarring, bronchiectasis in the lower lobe, 7 mm nodule in the right middle lobe with 3 mm nodule in the lingula, very subtle inflammatory stranding. Given vicinity of the subtle inflammatory changes pancreatic head consider correlation with pancreatic enzymes. No free intraperitoneal air or fluid. Bladder wall thickening which may be related to the versus cystitis, enlarged and heterogeneous prostate, coronary artery calcification with atherosclerotic vascular calcification, probably subcentimeter partial calcified splenic artery aneurysm. ASSESSMENT: 1. Epigastric pain, most likely secondary to pancreatitis versus peptic ulcer disease. 2. Pulmonary nodule. 3. Hypertension. 4. Diabetes type 2. 5. Dyslipidemia. 6. Depression. 7. Acute kidney injury on chronic renal insufficiency. 8. Dehydration. 9. Hypokalemia. PLAN: 1. Admit the patient to telemetry. 2. We will start the patient on IV hydration. 3. Clear liquid diet. 4. Monitor blood glucose level. 5. DVT prophylaxis with heparin subcutaneous. 6. Code status, Full Code. 7. We will follow up with Pulmonary consultation with Dr. Lopez as well as GI consultation with Dr. Sanchez. Juan Garnett M.D. DR: ARTURO JOB#: [id number] CC:
[2019-09-14 04:00] VITALS: BP 128/82
[2019-09-14] MEDS: NovoLOG Insulin Flexpen SUBQ SCH ×4 (06:29→21:33)
[2019-09-14 07:32] LABS: BASOPHILS % (AUTO) 1.2 % (0.0-2.0); EOSINOPHILS % (AUTO) 3.1 % (0.0-3.0); HEMATOCRIT 33.7 % (42.0-52.0); HEMOGLOBIN 11.9 G/DL (14.2-18.0); LYMPHOCYTES % (AUTO) 23.4 % (20.0-45.0); MEAN CORPUSCULAR VOLUME 90 FL (80-99); MONOCYTES % (AUTO) 8.8 % (1.0-10.0); NEUTROPHILS % (AUTO) 63.4 % (45.0-75.0); PLATELET COUNT 218 K/UL (150-450); RED BLOOD COUNT 3.74 M/UL (4.70-6.10); RED CELL DISTRIBUTION WIDTH 10.7 % (11.6-14.8); WHITE BLOOD COUNT 6.1 K/UL (4.8-10.8)
[2019-09-14 07:57] LABS: ALANINE AMINOTRANSFERASE 14 U/L (12-78); ALBUMIN 3.5 G/DL (3.4-5.0); ALBUMIN/GLOBULIN RATIO 1.1 (1.0-2.7); ALKALINE PHOSPHATASE 47 U/L (46-116); ANION GAP 10 mmol/L (5-15); ASPARTATE AMINO TRANSFERASE 18 U/L (15-37); BILIRUBIN,TOTAL 0.9 MG/DL (0.2-1.0); BLOOD UREA NITROGEN 15 mg/dL (7-18); CALCIUM 8.3 MG/DL (8.5-10.1); CARBON DIOXIDE 25 MMOL/L (21-32); CHLORIDE 106 MMOL/L (98-107); CREATININE 1.1 MG/DL (0.55-1.30); SODIUM 141 MMOL/L (136-145)
[2019-09-14 08:00] VITALS: BP 123/90
[2019-09-14] MEDS: Theophylline ER 100mg ORAL SCH ×2 (08:16→20:26)
[2019-09-14] MEDS: Losartan 50mg tab ORAL SCH (08:17)
[2019-09-14] MEDS: Heparin 5000 units/ml inj SUBQ SCH ×2 (08:20→20:37)
[2019-09-14 11:59] VITALS: BP 135/83
[2019-09-14 16:00] VITALS: BP 121/62
--- NOTE | 2019-09-14 16:04 | Consultation ---
History of Present Illness General Date patient seen: Sep 14, 2019 Chief Complaint: Vomiting Present Illness HPI 74 y/o [place] M with hx of HTN, DM2, MDD, s/p appendectomy, gastric ulcers , R shoulder surgery, HLD presented to ED On 09/13/19 with 2 days of nausea, vomiting. Now currently assymptomatic Denied f/c, chest pain, SOB, cough, sick contacts, recent travel. Allergies: Coded Allergies: No Known Allergies (Unverified , 09/12/19) Medication History Scheduled Atorvastatin (Lipitor), 10 MG ORAL BEDTIME, (Reported) Losartan Potassium (Losartan Potassium), 30 MG ORAL DAILY, (Reported) Metformin Hcl (Glucophage), 800 MG ORAL BID, (Reported) Omeprazole (Omeprazole), 10 MG ORAL DAILY, (Reported) Quetiapine Fumarate (Seroquel), 50 MG ORAL DAILY, (Reported) Sitagliptin* (Januvia*), 100 MG ORAL DAILY, (Reported) Scheduled PRN Tramadol Hcl* (Ultram*), 50 MG ORAL Q6H PRN for For Pain, (Reported) Discontinued Medications Diazepam* (Valium*), 2 MG ORAL Q8HR Discontinued Reason: Pt stopped taking med Meclizine Hcl* (Antivert*), 25 MG ORAL Q8HR Discontinued Reason: Pt stopped taking med Patient History Healthcare decision maker Resuscitation status Advanced Directive on File Patient History Narrative Pmhx: as above Shx: Denies any smoking, alcohol, or drugs. Fhmx: non contributory Review of Systems All Other Systems: negative except mentioned in HPI Physical Exam Physical Exam Narrative GENERAL: The patient is awake and responsive, in no acute distress. HEAD AND NECK: Pupils are equal and reactive. Extraocular movements are intact. Neck was supple. No JVD. LUNGS: Good air entry. No wheeze or rales. HEART: S1, S2. Regular rhythm. No gallops. ABDOMEN: Soft and nondistended. Epigastric tenderness on deep palpation. No rebound tenderness. No fluid shift. EXTREMITIES: No cyanosis, clubbing, or edema NEUROLOGIC: Cranial nerves II through XII grossly normal. Motor is 5/5 in all extremities. Gait is intact. Last 24 Hour Vital Signs Date Time Temp Pulse Resp B/P (MAP) Pulse Ox O2 Delivery O2 Flow Rate FiO2 09/14/19 11:59 98.2 66 18 135/83 (100) 97 09/14/19 08:29 Room Air 09/14/19 08:17 123/90 09/14/19 08:00 97.8 59 17 123/90 (101) 95 09/14/19 04:00 98.0 59 18 128/82 (97) 97 09/14/19 00:00 97.5 70 19 112/62 (79) 97 09/13/19 21:00 Room Air 09/13/19 20:00 98.1 68 18 133/81 (98) 94 09/13/19 19:00 98.8 74 18 107/80 (89) 93 09/13/19 16:00 98.2 73 18 121/61 (81) 97 Intake and Output 09/13/19 09/14/19 19:00 07:00 Intake Total 600 ml 1100 ml Output Total 900 ml Balance 600 ml 200 ml Intake Oral 600 ml 800 ml IV Total 300 ml Output Urine Total 900 ml # Voids 2 3 Laboratory Tests Test 09/14/19 06:40 White Blood Count 6.1 K/UL (4.8-10.8) Red Blood Count 3.74 M/UL (4.70-6.10) L Hemoglobin 11.9 G/DL (14.2-18.0) L Hematocrit 33.7 % (42.0-52.0) L Mean Corpuscular Volume 90 FL (80-99) Mean Corpuscular Hemoglobin 31.7 PG (27.0-31.0) H Mean Corpuscular Hemoglobin Concent 35.2 G/DL (32.0-36.0) Red Cell Distribution Width 10.7 % (11.6-14.8) L Platelet Count 218 K/UL (150-450) Mean Platelet Volume 5.5 FL (6.5-10.1) L Neutrophils (%) (Auto) 63.4 % (45.0-75.0) Lymphocytes (%) (Auto) 23.4 % (20.0-45.0) Monocytes (%) (Auto) 8.8 % (1.0-10.0) Eosinophils (%) (Auto) 3.1 % (0.0-3.0) H Basophils (%) (Auto) 1.2 % (0.0-2.0) Sodium Level 141 MMOL/L (136-145) Potassium Level 4.0 MMOL/L (3.5-5.1) Chloride Level 106 MMOL/L (98-107) Carbon Dioxide Level 25 MMOL/L (21-32) Anion Gap 10 mmol/L (5-15) Blood Urea Nitrogen 15 mg/dL (7-18) Creatinine 1.1 MG/DL (0.55-1.30) Estimat Glomerular Filtration Rate > 60 mL/min (>60) Glucose Level 160 MG/DL (74-106) H Calcium Level 8.3 MG/DL (8.5-10.1) L Magnesium Level 2.2 MG/DL (1.8-2.4) Total Bilirubin 0.9 MG/DL (0.2-1.0) Aspartate Amino Transf (AST/SGOT) 18 U/L (15-37) Alanine Aminotransferase (ALT/SGPT) 14 U/L (12-78) Alkaline Phosphatase 47 U/L (46-116) Total Protein 6.6 G/DL (6.4-8.2) Albumin 3.5 G/DL (3.4-5.0) Globulin 3.1 g/dL Albumin/Globulin Ratio 1.1 (1.0-2.7) Lipase 185 U/L (73-393) Height (Feet): 5 Height (Inches): 5.00 Weight (Pounds): 140 Medications Current Medications Medications (Trade) Dose Ordered Sig/Jose Angel Route PRN Reason Start Time Stop Time Status Last Admin Dose Admin Atorvastatin Calcium (Lipitor) 10 mg BEDTIME ORAL 09/13/19 21:00 12/12/19 20:59 09/13/19 20:14 Dextrose (Dextrose 50%) 25 ml Q30M PRN IV Hypoglycemia 09/13/19 22:45 12/12/19 22:44 Dextrose (Dextrose 50%) 50 ml Q30M PRN IV Hypoglycemia 09/13/19 22:45 12/12/19 22:44 Heparin Sodium (Porcine) (Heparin 5000 units/ml) 5,000 units EVERY 12 HOURS SUBQ 09/13/19 21:00 10/28/19 08:59 09/14/19 08:20 Insulin Aspart (NovoLOG) BEFORE MEALS AND HS SUBQ 09/14/19 06:30 12/13/19 06:29 09/14/19 06:29 Losartan Potassium (Cozaar) 50 mg DAILY ORAL 09/14/19 09:00 10/13/19 12:29 09/14/19 08:17 Ondansetron HCl (Zofran) 4 mg Q6H PRN IVP Nausea & Vomiting 09/13/19 18:51 10/13/19 18:50 Pantoprazole (Protonix) 40 mg DAILY ORAL 09/14/19 09:00 10/13/19 08:59 09/14/19 08:17 Potassium Chloride/Sodium Chloride 1,000 ml @ 75 mls/hr [id number] IV 09/13/19 23:00 10/13/19 22:59 09/14/19 00:42 Promethazine HCl/ Codeine (Phenergan with Codeine) 5 ml Q4H PRN ORAL For Cough 09/13/19 18:51 10/13/19 18:50 Quetiapine Fumarate (SEROqueL) 50 mg BEDTIME ORAL 09/13/19 21:00 10/28/19 20:59 09/13/19 20:14 Sitagliptin Phosphate (Januvia) 100 mg DAILY ORAL 09/14/19 09:00 10/13/19 08:59 09/14/19 08:17 Theophylline (Anuel-Dur) 100 mg EVERY 12 HOURS ORAL 09/13/19 21:00 12/12/19 20:59 09/14/19 08:16 Tramadol HCl (Ultram) 50 mg Q6H PRN ORAL For Pain 09/13/19 18:51 09/20/19 18:50 Assessment/Plan Assessment/Plan: Abx: Ceftriaxone 09/11 x1 Assessment: Nausea/vomiting- likely gastritis given hx of PUD- however r/o COVID 19 presentation with GI symptoms -09/11 CT c/ab/p: Mild emphysematous disease with mild scarring and bronchiectasis in the lower lobes. 7 mm nodule in the right middle lobe and 3 mm nodule in the lingula. Very subtle inflammatory stranding about the proximal duodenum (first and second portions) related to a mild duodenitis and/ or given history of peptic ulcer disease. Given vicinity of these subtle inflammatory changes the pancreatic head consider correlation with pancreatic enzymes. Remainder the pancreas is without evidence of peripancreatic inflammatory changes. No free intraperitoneal air or fluid. Bladder wall thickening which may be related to underdistention versus cystitis. Enlarged and heterogeneous prostate likely on the basis of BPH however correlation with prostate exam and PSA recommended. Coronary arterial calcifications and atherosclerotic vascular calcifications. Probable subcentimeter partially calcified splenic artery aneurysm (6 to 7 mm). -CXR: No radiographic evidence of acute cardiopulmonary disease. Afebrile No leukocytosis / u/a neg Bcx NTD KIMMIE, improving HTN DM2 MDD s/p appendectomy gastric ulcers R shoulder surgery HLD Plan: -Continue to monitor off abx -f/u cx -Monitor CBC/CMP, temperatures -Droplets/contacts/eye shield isolation -COVID19 testing -Can likely be discharge home tomorrow to continue isolation -If patient, medically stable for discharge can discharge following home isolation until results of COVID 19 is back .They should stay at home and separate themselves from other people in their home (stay in different room, use separate bathroom. Wear a facemask when need to be in the same room. Avoid sharing household items. If COVID19 test is positive, they should continue isolation for 7 days from onset of symptoms or 3 days after fever resolution, which ever is longer. Please refer to [email or web address] Thank you for consulting [facility]. Will continue to follow along with you. Discussed with Kathy Garcia M.D. Sep 14, 2019 16:04
--- NOTE | 2019-09-14 16:18 | Internal Med Progress Note ---
Subjective Date of Service: Sep 14, 2019 Physician Name RiosJames Attending Physician Juan Garnett MD Current Medications Medications (Trade) Dose Ordered Sig/Jose Angel Route PRN Reason Start Time Stop Time Status Last Admin Dose Admin Atorvastatin Calcium (Lipitor) 10 mg BEDTIME ORAL 09/13/19 21:00 12/12/19 20:59 09/13/19 20:14 Dextrose (Dextrose 50%) 25 ml Q30M PRN IV Hypoglycemia 09/13/19 22:45 12/12/19 22:44 Dextrose (Dextrose 50%) 50 ml Q30M PRN IV Hypoglycemia 09/13/19 22:45 12/12/19 22:44 Heparin Sodium (Porcine) (Heparin 5000 units/ml) 5,000 units EVERY 12 HOURS SUBQ 09/13/19 21:00 10/28/19 08:59 09/14/19 08:20 Insulin Aspart (NovoLOG) BEFORE MEALS AND HS SUBQ 09/14/19 06:30 12/13/19 06:29 09/14/19 06:29 Losartan Potassium (Cozaar) 50 mg DAILY ORAL 09/14/19 09:00 10/13/19 12:29 09/14/19 08:17 Ondansetron HCl (Zofran) 4 mg Q6H PRN IVP Nausea & Vomiting 09/13/19 18:51 10/13/19 18:50 Pantoprazole (Protonix) 40 mg DAILY ORAL 09/14/19 09:00 10/13/19 08:59 09/14/19 08:17 Potassium Chloride/Sodium Chloride 1,000 ml @ 75 mls/hr [id number] IV 09/13/19 23:00 10/13/19 22:59 09/14/19 00:42 Promethazine HCl/ Codeine (Phenergan with Codeine) 5 ml Q4H PRN ORAL For Cough 09/13/19 18:51 10/13/19 18:50 Quetiapine Fumarate (SEROqueL) 50 mg BEDTIME ORAL 09/13/19 21:00 10/28/19 20:59 09/13/19 20:14 Sitagliptin Phosphate (Januvia) 100 mg DAILY ORAL 09/14/19 09:00 10/13/19 08:59 09/14/19 08:17 Theophylline (Anuel-Dur) 100 mg EVERY 12 HOURS ORAL 09/13/19 21:00 12/12/19 20:59 09/14/19 08:16 Tramadol HCl (Ultram) 50 mg Q6H PRN ORAL For Pain 09/13/19 18:51 09/20/19 18:50 Allergies: Coded Allergies: No Known Allergies (Unverified , 09/12/19) ROS Limited/Unobtainable: No Constitutional: Reports: no symptoms HEENT: Reports: no symptoms Cardiovascular: Reports: no symptoms Respiratory: Reports: no symptoms Gastrointestinal/Abdominal: Reports: abdominal pain Genitourinary: Reports: no symptoms Neurologic/Psychiatric: Reports: no symptoms Subjective 74 YO M admitted with epigastric pain. Cover for Int Donta-Dr Garnett Objective Last Vital Signs Date Time Temp Pulse Resp B/P (MAP) Pulse Ox O2 Delivery O2 Flow Rate FiO2 09/14/19 11:59 98.2 66 18 135/83 (100) 97 09/14/19 08:29 Room Air Laboratory Tests Test 09/14/19 06:40 White Blood Count 6.1 K/UL (4.8-10.8) Red Blood Count 3.74 M/UL (4.70-6.10) L Hemoglobin 11.9 G/DL (14.2-18.0) L Hematocrit 33.7 % (42.0-52.0) L Mean Corpuscular Volume 90 FL (80-99) Mean Corpuscular Hemoglobin 31.7 PG (27.0-31.0) H Mean Corpuscular Hemoglobin Concent 35.2 G/DL (32.0-36.0) Red Cell Distribution Width 10.7 % (11.6-14.8) L Platelet Count 218 K/UL (150-450) Mean Platelet Volume 5.5 FL (6.5-10.1) L Neutrophils (%) (Auto) 63.4 % (45.0-75.0) Lymphocytes (%) (Auto) 23.4 % (20.0-45.0) Monocytes (%) (Auto) 8.8 % (1.0-10.0) Eosinophils (%) (Auto) 3.1 % (0.0-3.0) H Basophils (%) (Auto) 1.2 % (0.0-2.0) Sodium Level 141 MMOL/L (136-145) Potassium Level 4.0 MMOL/L (3.5-5.1) Chloride Level 106 MMOL/L (98-107) Carbon Dioxide Level 25 MMOL/L (21-32) Anion Gap 10 mmol/L (5-15) Blood Urea Nitrogen 15 mg/dL (7-18) Creatinine 1.1 MG/DL (0.55-1.30) Estimat Glomerular Filtration Rate > 60 mL/min (>60) Glucose Level 160 MG/DL (74-106) H Calcium Level 8.3 MG/DL (8.5-10.1) L Magnesium Level 2.2 MG/DL (1.8-2.4) Total Bilirubin 0.9 MG/DL (0.2-1.0) Aspartate Amino Transf (AST/SGOT) 18 U/L (15-37) Alanine Aminotransferase (ALT/SGPT) 14 U/L (12-78) Alkaline Phosphatase 47 U/L (46-116) Total Protein 6.6 G/DL (6.4-8.2) Albumin 3.5 G/DL (3.4-5.0) Globulin 3.1 g/dL Albumin/Globulin Ratio 1.1 (1.0-2.7) Lipase 185 U/L (73-393) Microbiology Date/Time Source Procedure Growth Status 09/12/19 20:22 Blood Blood Culture - Preliminary NO GROWTH AFTER 24 HOURS Resulted 09/12/19 20:00 Blood Blood Culture - Preliminary NO GROWTH AFTER 24 HOURS Resulted Intake and Output 09/13/19 09/14/19 19:00 07:00 Intake Total 600 ml 1100 ml Output Total 900 ml Balance 600 ml 200 ml Intake Oral 600 ml 800 ml IV Total 300 ml Output Urine Total 900 ml # Voids 2 3 Objective PHYSICAL EXAMINATION: GENERAL: The patient is awake and responsive, in no acute distress. HEAD AND NECK: Pupils are equal and reactive. Extraocular movements are intact. Neck was supple. No JVD. LUNGS: Good air entry. No wheeze or rales. HEART: S1, S2. Regular rhythm. No gallops. ABDOMEN: Soft and nondistended. Epigastric tenderness on deep palpation. No rebound tenderness. No fluid shift. EXTREMITIES: No cyanosis, clubbing, or edema NEUROLOGIC: Cranial nerves II through XII grossly normal. Motor is 5/5 in all extremities. Gait is intact. RECTAL/GENITOURINARY: Refused and deferred. PSYCHIATRIC: Mood and affect is intact. Assessment/Plan Assessment/Plan ASSESSMENT: 1. Epigastric pain, most likely secondary to pancreatitis versus peptic ulcer disease. 2. Pulmonary nodule. 3. Hypertension. 4. Diabetes type 2. 5. Dyslipidemia. 6. Depression. 7. Acute kidney injury on chronic renal insufficiency. 8. Dehydration. 9. Hypokalemia. PLAN: 1. Med/surg 2. We will start the patient on IV hydration. 3. tolerating diabetic diet. 4. Monitor blood glucose level. 5. DVT prophylaxis with heparin subcutaneous. 6. Code status, Full Code. 7. We will follow up with Pulmonary consultation with Dr. Lopez as well as GI consultation with Dr. Sanchez. James Rios MD Sep 14, 2019 16:18
--- NOTE | 2019-09-14 17:45 | Pulmonology Progress Note ---
Assessment/Plan Problems: (1) Duodenitis (2) Intractable abdominal pain (3) Pulmonary nodule (4) Bronchiectasis (5) Diabetes mellitus (6) History of hypertension (7) History of splenectomy (8) Depression Assessment/Plan respiratory treatment check sputum symptomatic treatment GI to see BC negative, no other cultures sent pain management. Subjective ROS Limited/Unobtainable: No Constitutional: Reports: no symptoms HEENT: Repors: no symptoms Respiratory: Reports: no symptoms Allergies: Coded Allergies: No Known Allergies (Unverified , 09/12/19) Objective Last 24 Hour Vital Signs Date Time Temp Pulse Resp B/P (MAP) Pulse Ox O2 Delivery O2 Flow Rate FiO2 09/14/19 16:00 97.9 63 19 121/62 (81) 97 09/14/19 11:59 98.2 66 18 135/83 (100) 97 09/14/19 08:29 Room Air 09/14/19 08:17 123/90 09/14/19 08:00 97.8 59 17 123/90 (101) 95 09/14/19 04:00 98.0 59 18 128/82 (97) 97 09/14/19 00:00 97.5 70 19 112/62 (79) 97 09/13/19 21:00 Room Air 09/13/19 20:00 98.1 68 18 133/81 (98) 94 09/13/19 19:00 98.8 74 18 107/80 (89) 93 Intake and Output 09/13/19 09/14/19 19:00 07:00 Intake Total 600 ml 1100 ml Output Total 900 ml Balance 600 ml 200 ml Intake Oral 600 ml 800 ml IV Total 300 ml Output Urine Total 900 ml # Voids 2 3 Objective General Appearance: WD/WN HEENT: normocephalic Respiratory/Chest: chest wall non-tender, lungs clear Cardiovascular: normal rate, regular rhythm Abdomen: normal bowel sounds, no organomegaly Extremities: no cyanosis Skin: no ulcers 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 Microbiology Date/Time Source Procedure Growth Status 09/12/19 20:22 Blood Blood Culture - Preliminary NO GROWTH AFTER 24 HOURS Resulted 09/12/19 20:00 Blood Blood Culture - Preliminary NO GROWTH AFTER 24 HOURS Resulted Laboratory Tests 09/14/19 06:40: White Blood Count 6.1, Red Blood Count 3.74L, Hemoglobin 11.9L, Hematocrit 33.7L , Mean Corpuscular Volume 90, Mean Corpuscular Hemoglobin 31.7H, Mean Corpuscular Hemoglobin Concent 35.2, Red Cell Distribution Width 10.7L, Platelet Count 218, Mean Platelet Volume 5.5L, Neutrophils (%) (Auto) 63.4, Lymphocytes (%) (Auto) 23.4, Monocytes (%) (Auto) 8.8, Eosinophils (%) (Auto) 3.1H, Basophils (%) (Auto) 1.2, Sodium Level 141, Potassium Level 4.0, Chloride Level 106, Carbon Dioxide Level 25, Anion Gap 10, Blood Urea Nitrogen 15, Creatinine 1.1, Estimat Glomerular Filtration Rate > 60, Glucose Level 160H, Calcium Level 8.3L, Magnesium Level 2.2, Total Bilirubin 0.9, Aspartate Amino Transf (AST/SGOT) 18, Alanine Aminotransferase (ALT/SGPT) 14, Alkaline Phosphatase 47, Total Protein 6.6, Albumin 3.5, Globulin 3.1, Albumin/Globulin Ratio 1.1, Lipase 185 Current Medications Medications (Trade) Dose Ordered Sig/Jose Angel Route PRN Reason Start Time Stop Time Status Last Admin Dose Admin Atorvastatin Calcium (Lipitor) 10 mg BEDTIME ORAL 09/13/19 21:00 12/12/19 20:59 09/13/19 20:14 Dextrose (Dextrose 50%) 25 ml Q30M PRN IV Hypoglycemia 09/13/19 22:45 12/12/19 22:44 Dextrose (Dextrose 50%) 50 ml Q30M PRN IV Hypoglycemia 09/13/19 22:45 12/12/19 22:44 Heparin Sodium (Porcine) (Heparin 5000 units/ml) 5,000 units EVERY 12 HOURS SUBQ 09/13/19 21:00 10/28/19 08:59 09/14/19 08:20 Insulin Aspart (NovoLOG) BEFORE MEALS AND HS SUBQ 09/14/19 06:30 12/13/19 06:29 09/14/19 17:24 Losartan Potassium (Cozaar) 50 mg DAILY ORAL 09/14/19 09:00 10/13/19 12:29 09/14/19 08:17 Ondansetron HCl (Zofran) 4 mg Q6H PRN IVP Nausea & Vomiting 09/13/19 18:51 10/13/19 18:50 Pantoprazole (Protonix) 40 mg DAILY ORAL 09/14/19 09:00 10/13/19 08:59 09/14/19 08:17 Potassium Chloride/Sodium Chloride 1,000 ml @ 75 mls/hr [id number] IV 09/13/19 23:00 10/13/19 22:59 09/14/19 00:42 Promethazine HCl/ Codeine (Phenergan with Codeine) 5 ml Q4H PRN ORAL For Cough 09/13/19 18:51 10/13/19 18:50 Quetiapine Fumarate (SEROqueL) 50 mg BEDTIME ORAL 09/13/19 21:00 10/28/19 20:59 09/13/19 20:14 Sitagliptin Phosphate (Januvia) 100 mg DAILY ORAL 09/14/19 09:00 10/13/19 08:59 09/14/19 08:17 Theophylline (Anuel-Dur) 100 mg EVERY 12 HOURS ORAL 09/13/19 21:00 12/12/19 20:59 09/14/19 08:16 Tramadol HCl (Ultram) 50 mg Q6H PRN ORAL For Pain 09/13/19 18:51 09/20/19 18:50 Elijah Lopez MD Sep 14, 2019 17:45
[2019-09-14 20:00] VITALS: BP 133/85
[2019-09-15] VITALS: BP 93/50
[2019-09-15 04:00] VITALS: BP 121/74
[2019-09-15] MEDS: NovoLOG Insulin Flexpen SUBQ SCH ×4 (06:26→20:21)
[2019-09-15 07:30] LABS: BASOPHILS % (AUTO) 1.5 % (0.0-2.0); EOSINOPHILS % (AUTO) 5.5 % (0.0-3.0); HEMATOCRIT 33.2 % (42.0-52.0); HEMOGLOBIN 11.7 G/DL (14.2-18.0); LYMPHOCYTES % (AUTO) 29.9 % (20.0-45.0); MEAN CORPUSCULAR VOLUME 90 FL (80-99); MONOCYTES % (AUTO) 10.2 % (1.0-10.0); NEUTROPHILS % (AUTO) 52.8 % (45.0-75.0); PLATELET COUNT 220 K/UL (150-450); RED BLOOD COUNT 3.68 M/UL (4.70-6.10); RED CELL DISTRIBUTION WIDTH 10.5 % (11.6-14.8); WHITE BLOOD COUNT 5.3 K/UL (4.8-10.8)
[2019-09-15 07:32] LABS: ALANINE AMINOTRANSFERASE 19 U/L (12-78); ALBUMIN 3.5 G/DL (3.4-5.0); ALBUMIN/GLOBULIN RATIO 1.2 (1.0-2.7); ALKALINE PHOSPHATASE 49 U/L (46-116); ANION GAP 7 mmol/L (5-15); ASPARTATE AMINO TRANSFERASE 16 U/L (15-37); BILIRUBIN,TOTAL 0.6 MG/DL (0.2-1.0); BLOOD UREA NITROGEN 14 mg/dL (7-18); CALCIUM 8.6 MG/DL (8.5-10.1); CARBON DIOXIDE 27 MMOL/L (21-32); CHLORIDE 106 MMOL/L (98-107); CREATININE 1.1 MG/DL (0.55-1.30); PHOSPHORUS 3.3 MG/DL (2.5-4.9); POTASSIUM 4.2 MMOL/L (3.5-5.1); SODIUM 140 MMOL/L (136-145)
[2019-09-15 08:00] VITALS: BP 158/82
[2019-09-15] MEDS: Theophylline ER 100mg ORAL SCH ×2 (08:27→20:12)
[2019-09-15] MEDS: Heparin 5000 units/ml inj SUBQ SCH ×2 (08:28→20:22)
[2019-09-15] MEDS: Losartan 50mg tab ORAL SCH (08:55)
[2019-09-15] MEDS ORDERED: metFORMIN 500mg tab ORAL SCH (09:00)
[2019-09-15] MEDS: NS w/KCl 20mEq 1000ml 1,000 ML IV SCH ×2 (09:52→21:23)
[2019-09-15 12:00] VITALS: BP 145/95
--- NOTE | 2019-09-15 15:13 | Internal Med Progress Note ---
Subjective Date of Service: Sep 15, 2019 Physician Name RiosJames Attending Physician Juan Garnett MD Current Medications Medications (Trade) Dose Ordered Sig/Jose Angel Route PRN Reason Start Time Stop Time Status Last Admin Dose Admin Atorvastatin Calcium (Lipitor) 10 mg BEDTIME ORAL 09/13/19 21:00 12/12/19 20:59 09/14/19 20:26 Dextrose (Dextrose 50%) 25 ml Q30M PRN IV Hypoglycemia 09/13/19 22:45 12/12/19 22:44 Dextrose (Dextrose 50%) 50 ml Q30M PRN IV Hypoglycemia 09/13/19 22:45 12/12/19 22:44 Heparin Sodium (Porcine) (Heparin 5000 units/ml) 5,000 units EVERY 12 HOURS SUBQ 09/13/19 21:00 10/28/19 08:59 09/15/19 08:28 Insulin Aspart (NovoLOG) BEFORE MEALS AND HS SUBQ 09/14/19 06:30 12/13/19 06:29 09/15/19 12:30 Losartan Potassium (Cozaar) 50 mg DAILY ORAL 09/14/19 09:00 10/13/19 12:29 09/15/19 08:55 Ondansetron HCl (Zofran) 4 mg Q6H PRN IVP Nausea & Vomiting 09/13/19 18:51 10/13/19 18:50 Pantoprazole (Protonix) 40 mg DAILY ORAL 09/14/19 09:00 10/13/19 08:59 09/15/19 08:27 Potassium Chloride/Sodium Chloride 1,000 ml @ 75 mls/hr [id number] IV 09/13/19 23:00 10/13/19 22:59 09/15/19 09:52 Promethazine HCl/ Codeine (Phenergan with Codeine) 5 ml Q4H PRN ORAL For Cough 09/13/19 18:51 10/13/19 18:50 Quetiapine Fumarate (SEROqueL) 50 mg BEDTIME ORAL 09/13/19 21:00 10/28/19 20:59 09/14/19 20:26 Sitagliptin Phosphate (Januvia) 100 mg DAILY ORAL 09/14/19 09:00 10/13/19 08:59 09/15/19 08:27 Theophylline (Anuel-Dur) 100 mg EVERY 12 HOURS ORAL 09/13/19 21:00 12/12/19 20:59 09/15/19 08:27 Tramadol HCl (Ultram) 50 mg Q6H PRN ORAL For Pain 09/13/19 18:51 09/20/19 18:50 Allergies: Coded Allergies: No Known Allergies (Unverified , 09/12/19) ROS Limited/Unobtainable: No Constitutional: Reports: no symptoms HEENT: Reports: no symptoms Cardiovascular: Reports: no symptoms Respiratory: Reports: no symptoms Gastrointestinal/Abdominal: Reports: abdominal pain Genitourinary: Reports: no symptoms Neurologic/Psychiatric: Reports: no symptoms Subjective 74 YO M admitted with epigastric pain. Cover for Int Donta-Dr Garnett Objective Last Vital Signs Date Time Temp Pulse Resp B/P (MAP) Pulse Ox O2 Delivery O2 Flow Rate FiO2 09/15/19 12:00 97.5 72 16 145/95 (112) 99 09/15/19 09:00 Room Air Laboratory Tests Test 09/15/19 05:00 White Blood Count 5.3 K/UL (4.8-10.8) Red Blood Count 3.68 M/UL (4.70-6.10) L Hemoglobin 11.7 G/DL (14.2-18.0) L Hematocrit 33.2 % (42.0-52.0) L Mean Corpuscular Volume 90 FL (80-99) Mean Corpuscular Hemoglobin 31.8 PG (27.0-31.0) H Mean Corpuscular Hemoglobin Concent 35.3 G/DL (32.0-36.0) Red Cell Distribution Width 10.5 % (11.6-14.8) L Platelet Count 220 K/UL (150-450) Mean Platelet Volume 5.6 FL (6.5-10.1) L Neutrophils (%) (Auto) 52.8 % (45.0-75.0) Lymphocytes (%) (Auto) 29.9 % (20.0-45.0) Monocytes (%) (Auto) 10.2 % (1.0-10.0) H Eosinophils (%) (Auto) 5.5 % (0.0-3.0) H Basophils (%) (Auto) 1.5 % (0.0-2.0) Erythrocyte Sedimentation Rate 25 MM/HR (0-20) H Sodium Level 140 MMOL/L (136-145) Potassium Level 4.2 MMOL/L (3.5-5.1) Chloride Level 106 MMOL/L (98-107) Carbon Dioxide Level 27 MMOL/L (21-32) Anion Gap 7 mmol/L (5-15) Blood Urea Nitrogen 14 mg/dL (7-18) Creatinine 1.1 MG/DL (0.55-1.30) Estimat Glomerular Filtration Rate > 60 mL/min (>60) Glucose Level 145 MG/DL (74-106) H Calcium Level 8.6 MG/DL (8.5-10.1) Phosphorus Level 3.3 MG/DL (2.5-4.9) Magnesium Level 2.1 MG/DL (1.8-2.4) Total Bilirubin 0.6 MG/DL (0.2-1.0) Aspartate Amino Transf (AST/SGOT) 16 U/L (15-37) Alanine Aminotransferase (ALT/SGPT) 19 U/L (12-78) Alkaline Phosphatase 49 U/L (46-116) C-Reactive Protein, Quantitative < 0.4 mg/dL (0.00-0.90) Total Protein 6.5 G/DL (6.4-8.2) Albumin 3.5 G/DL (3.4-5.0) Globulin 3.0 g/dL Albumin/Globulin Ratio 1.2 (1.0-2.7) Microbiology Date/Time Source Procedure Growth Status 09/12/19 20:22 Blood Blood Culture - Preliminary NO GROWTH AFTER 48 HOURS Resulted 09/12/19 20:00 Blood Blood Culture - Preliminary NO GROWTH AFTER 48 HOURS Resulted Intake and Output 09/14/19 09/15/19 19:00 07:00 Intake Total 1390 ml 675 ml Output Total 500 ml 850 ml Balance 890 ml -175 ml Intake Oral 640 ml IV Total 750 ml 675 ml Output Urine Total 500 ml 850 ml # Voids 2 Objective PHYSICAL EXAMINATION: GENERAL: The patient is awake and responsive, in no acute distress. HEAD AND NECK: Pupils are equal and reactive. Extraocular movements are intact. Neck was supple. No JVD. LUNGS: Good air entry. No wheeze or rales. HEART: S1, S2. Regular rhythm. No gallops. ABDOMEN: Soft and nondistended. Epigastric tenderness on deep palpation. No rebound tenderness. No fluid shift. EXTREMITIES: No cyanosis, clubbing, or edema NEUROLOGIC: Cranial nerves II through XII grossly normal. Motor is 5/5 in all extremities. Gait is intact. RECTAL/GENITOURINARY: Refused and deferred. PSYCHIATRIC: Mood and affect is intact. Assessment/Plan Assessment/Plan ASSESSMENT: 1. Epigastric pain/duodenitis 2. Pulmonary nodule. 3. Hypertension. 4. Diabetes type 2. 5. Dyslipidemia. 6. Depression. 7. Acute kidney injury on chronic renal insufficiency. 8. Dehydration. 9. Hypokalemia. 10. Bronchiectasis PLAN: 1. Med/surg 2. We will start the patient on IV hydration. 3. tolerating diabetic diet. 4. Monitor blood glucose level. 5. DVT prophylaxis with heparin subcutaneous. 6. Code status, Full Code. 7. We will follow up with Pulmonary consultation with Dr. Lopez as well as GI consultation with Dr. Sanchez. James Rios MD Sep 15, 2019 15:13
[2019-09-15 16:00] VITALS: BP 141/92
--- NOTE | 2019-09-15 17:08 | Pulmonology Progress Note ---
Assessment/Plan Problems: (1) Duodenitis (2) Intractable abdominal pain (3) Pulmonary nodule (4) Bronchiectasis (5) Diabetes mellitus (6) History of hypertension (7) History of splenectomy (8) Depression Assessment/Plan respiratory treatment check sputum symptomatic treatment GI to see BC negative, no other cultures sent pain management. from ID note: -If patient, medically stable for discharge can discharge following home isolation until results of COVID 19 is back .They should stay at home and separate themselves from other people in their home (stay in different room, use separate bathroom. Wear a facemask when need to be in the same room. Avoid sharing household items. If COVID19 test is positive, they should continue isolation for 7 days from onset of symptoms or 3 days after fever resolution, which ever is longer. Please refer to [email or web address] Subjective ROS Limited/Unobtainable: No Constitutional: Reports: no symptoms HEENT: Repors: no symptoms Respiratory: Reports: no symptoms Allergies: Coded Allergies: No Known Allergies (Unverified , 09/12/19) Objective Last 24 Hour Vital Signs Date Time Temp Pulse Resp B/P (MAP) Pulse Ox O2 Delivery O2 Flow Rate FiO2 09/15/19 16:00 97.5 67 18 141/92 (108) 96 09/15/19 12:00 97.5 72 16 145/95 (112) 99 09/15/19 09:00 Room Air 09/15/19 08:55 158/82 09/15/19 08:00 97.0 60 16 158/82 (107) 97 09/15/19 04:00 97.6 59 16 121/74 (90) 97 09/14/19 21:00 Room Air 09/14/19 20:00 98.2 67 16 133/85 (101) 98 Intake and Output 09/14/19 09/15/19 19:00 07:00 Intake Total 1390 ml 675 ml Output Total 500 ml 850 ml Balance 890 ml -175 ml Intake Oral 640 ml IV Total 750 ml 675 ml Output Urine Total 500 ml 850 ml # Voids 2 Objective General Appearance: WD/WN HEENT: normocephalic Respiratory/Chest: chest wall non-tender, lungs clear Cardiovascular: normal rate, regular rhythm Abdomen: normal bowel sounds, no organomegaly Extremities: no cyanosis Skin: no ulcers 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 Microbiology Date/Time Source Procedure Growth Status 09/12/19 20:22 Blood Blood Culture - Preliminary NO GROWTH AFTER 48 HOURS Resulted 09/12/19 20:00 Blood Blood Culture - Preliminary NO GROWTH AFTER 48 HOURS Resulted Laboratory Tests 09/15/19 05:00: White Blood Count 5.3, Red Blood Count 3.68L, Hemoglobin 11.7L, Hematocrit 33.2L , Mean Corpuscular Volume 90, Mean Corpuscular Hemoglobin 31.8H, Mean Corpuscular Hemoglobin Concent 35.3, Red Cell Distribution Width 10.5L, Platelet Count 220, Mean Platelet Volume 5.6L, Neutrophils (%) (Auto) 52.8, Lymphocytes (%) (Auto) 29.9, Monocytes (%) (Auto) 10.2H, Eosinophils (%) (Auto) 5.5H, Basophils (%) (Auto) 1.5, Erythrocyte Sedimentation Rate 25H, Sodium Level 140, Potassium Level 4.2, Chloride Level 106, Carbon Dioxide Level 27, Anion Gap 7, Blood Urea Nitrogen 14, Creatinine 1.1, Estimat Glomerular Filtration Rate > 60, Glucose Level 145H, Calcium Level 8.6, Phosphorus Level 3.3, Magnesium Level 2.1, Total Bilirubin 0.6, Aspartate Amino Transf (AST/SGOT ) 16, Alanine Aminotransferase (ALT/SGPT) 19, Alkaline Phosphatase 49, C- Reactive Protein, Quantitative < 0.4, Total Protein 6.5, Albumin 3.5, Globulin 3.0, Albumin/Globulin Ratio 1.2 Current Medications Medications (Trade) Dose Ordered Sig/Jose Angel Route PRN Reason Start Time Stop Time Status Last Admin Dose Admin Atorvastatin Calcium (Lipitor) 10 mg BEDTIME ORAL 09/13/19 21:00 12/12/19 20:59 09/14/19 20:26 Dextrose (Dextrose 50%) 25 ml Q30M PRN IV Hypoglycemia 09/13/19 22:45 12/12/19 22:44 Dextrose (Dextrose 50%) 50 ml Q30M PRN IV Hypoglycemia 09/13/19 22:45 12/12/19 22:44 Heparin Sodium (Porcine) (Heparin 5000 units/ml) 5,000 units EVERY 12 HOURS SUBQ 09/13/19 21:00 10/28/19 08:59 09/15/19 08:28 Insulin Aspart (NovoLOG) BEFORE MEALS AND HS SUBQ 09/14/19 06:30 12/13/19 06:29 09/15/19 12:30 Losartan Potassium (Cozaar) 50 mg DAILY ORAL 09/14/19 09:00 10/13/19 12:29 09/15/19 08:55 Ondansetron HCl (Zofran) 4 mg Q6H PRN IVP Nausea & Vomiting 09/13/19 18:51 10/13/19 18:50 Pantoprazole (Protonix) 40 mg DAILY ORAL 09/14/19 09:00 10/13/19 08:59 09/15/19 08:27 Potassium Chloride/Sodium Chloride 1,000 ml @ 75 mls/hr [id number] IV 09/13/19 23:00 10/13/19 22:59 09/15/19 09:52 Promethazine HCl/ Codeine (Phenergan with Codeine) 5 ml Q4H PRN ORAL For Cough 09/13/19 18:51 10/13/19 18:50 Quetiapine Fumarate (SEROqueL) 50 mg BEDTIME ORAL 09/13/19 21:00 10/28/19 20:59 09/14/19 20:26 Sitagliptin Phosphate (Januvia) 100 mg DAILY ORAL 09/14/19 09:00 10/13/19 08:59 09/15/19 08:27 Theophylline (Anuel-Dur) 100 mg EVERY 12 HOURS ORAL 09/13/19 21:00 12/12/19 20:59 09/15/19 08:27 Tramadol HCl (Ultram) 50 mg Q6H PRN ORAL For Pain 09/13/19 18:51 09/20/19 18:50 Elijah Lopez MD Sep 15, 2019 17:08
[2019-09-15 20:00] VITALS: BP 141/85
[2019-09-16 04:00] VITALS: BP 140/78
[2019-09-16] MEDS: NovoLOG Insulin Flexpen SUBQ SCH ×4 (05:40→21:54)
[2019-09-16 06:52] LABS: BASOPHILS % (AUTO) 1.2 % (0.0-2.0); EOSINOPHILS % (AUTO) 6.3 % (0.0-3.0); HEMOGLOBIN 11.9 G/DL (14.2-18.0); LYMPHOCYTES % (AUTO) 29.1 % (20.0-45.0); MEAN CORPUSCULAR VOLUME 89 FL (80-99); MONOCYTES % (AUTO) 9.5 % (1.0-10.0); PLATELET COUNT 243 K/UL (150-450); RED BLOOD COUNT 3.73 M/UL (4.70-6.10); RED CELL DISTRIBUTION WIDTH 10.3 % (11.6-14.8); WHITE BLOOD COUNT 5.7 K/UL (4.8-10.8)
[2019-09-16 06:54] LABS: ANION GAP 10 mmol/L (5-15); BLOOD UREA NITROGEN 17 mg/dL (7-18); CARBON DIOXIDE 25 MMOL/L (21-32); CHLORIDE 103 MMOL/L (98-107); CREATININE 1.1 MG/DL (0.55-1.30); POTASSIUM 3.9 MMOL/L (3.5-5.1); SODIUM 138 MMOL/L (136-145)
[2019-09-16 08:00] VITALS: BP 152/91
[2019-09-16] MEDS: Heparin 5000 units/ml inj SUBQ SCH ×2 (08:14→21:53)
[2019-09-16] MEDS: Theophylline ER 100mg ORAL SCH ×2 (08:16→21:44)
[2019-09-16] MEDS: Losartan 50mg tab ORAL SCH (08:44)
--- NOTE | 2019-09-16 11:40 | General Progress Note ---
Assessment/Plan Problem List: (1) Duodenitis ICD Codes: K29.80 - Duodenitis without bleeding SNOMED: 64242993 (2) Pancreatitis ICD Codes: K85.90 - Acute pancreatitis without necrosis or infection, unspecified SNOMED: 24499235 Qualifiers: Qualified Codes: K85.90 - Acute pancreatitis without necrosis or infection, unspecified (3) Pulmonary nodule ICD Codes: R91.1 - Solitary pulmonary nodule SNOMED: 619459448 (4) History of hypertension ICD Codes: Z86.79 - Personal history of other diseases of the circulatory system SNOMED: 434358187 (5) Diabetes mellitus ICD Codes: E11.9 - Type 2 diabetes mellitus without complications SNOMED: 12986125 (6) History of splenectomy ICD Codes: Z90.81 - Acquired absence of spleen SNOMED: 172686631 Assessment/Plan: ppi bowel regimen anemia work up repeat labs will fu Subjective ROS Limited/Unobtainable: Yes Allergies: Coded Allergies: No Known Allergies (Unverified , 09/12/19) Objective Last 24 Hour Vital Signs Date Time Temp Pulse Resp B/P (MAP) Pulse Ox O2 Delivery O2 Flow Rate FiO2 09/16/19 09:00 Room Air 09/16/19 08:44 152/91 09/16/19 08:00 97.9 86 20 152/91 (111) 98 09/16/19 04:00 97.5 63 18 140/78 (98) 98 09/15/19 20:53 Room Air 09/15/19 20:00 98.2 67 17 141/85 (103) 98 09/15/19 16:00 97.5 67 18 141/92 (108) 96 09/15/19 12:00 97.5 72 16 145/95 (112) 99 Intake and Output 09/15/19 09/16/19 19:00 07:00 Intake Total 875 ml 1325 ml Output Total 600 ml 850 ml Balance 275 ml 475 ml Intake Oral 800 ml 500 ml IV Total 75 ml 825 ml Output Urine Total 600 ml 850 ml Laboratory Tests 09/16/19 05:30: White Blood Count 5.7, Red Blood Count 3.73L, Hemoglobin 11.9L, Hematocrit 33.0L , Mean Corpuscular Volume 89, Mean Corpuscular Hemoglobin 31.9H, Mean Corpuscular Hemoglobin Concent 36.0, Red Cell Distribution Width 10.3L, Platelet Count 243, Mean Platelet Volume 5.4L, Neutrophils (%) (Auto) 54.0, Lymphocytes (%) (Auto) 29.1, Monocytes (%) (Auto) 9.5, Eosinophils (%) (Auto) 6.3H, Basophils (%) (Auto) 1.2, Sodium Level 138, Potassium Level 3.9, Chloride Level 103, Carbon Dioxide Level 25, Anion Gap 10, Blood Urea Nitrogen 17, Creatinine 1.1, Estimat Glomerular Filtration Rate > 60, Glucose Level 133H, Calcium Level 9.0 Height (Feet): 5 Height (Inches): 5.00 Weight (Pounds): 140 General Appearance: no apparent distress EENT: normal ENT inspection Neck: supple Respiratory/Chest: decreased breath sounds Abdomen: normal bowel sounds, non tender, soft Extremities: non-tender Kian Sanchez MD Sep 16, 2019 11:40
[2019-09-16 12:00] VITALS: BP 133/72
--- NOTE | 2019-09-16 15:31 | Pulmonology Progress Note ---
Assessment/Plan Problems: (1) Duodenitis (2) Intractable abdominal pain (3) Pulmonary nodule (4) Bronchiectasis (5) Diabetes mellitus (6) History of hypertension (7) History of splenectomy (8) Depression Assessment/Plan respiratory treatment check sputum symptomatic treatment GI to see BC negative, no other cultures sent pain management. from ID note: -If patient, medically stable for discharge can discharge following home isolation until results of COVID 19 is back .They should stay at home and separate themselves from other people in their home (stay in different room, use separate bathroom. Wear a facemask when need to be in the same room. Avoid sharing household items. If COVID19 test is positive, they should continue isolation for 7 days from onset of symptoms or 3 days after fever resolution, which ever is longer. Please refer to [email or web address] Subjective ROS Limited/Unobtainable: No Constitutional: Reports: no symptoms HEENT: Repors: no symptoms Allergies: Coded Allergies: No Known Allergies (Unverified , 09/12/19) Objective Last 24 Hour Vital Signs Date Time Temp Pulse Resp B/P (MAP) Pulse Ox O2 Delivery O2 Flow Rate FiO2 09/16/19 12:00 97.3 80 19 133/72 (92) 98 09/16/19 09:00 Room Air 09/16/19 08:44 152/91 09/16/19 08:00 97.9 86 20 152/91 (111) 98 09/16/19 04:00 97.5 63 18 140/78 (98) 98 09/15/19 20:53 Room Air 09/15/19 20:00 98.2 67 17 141/85 (103) 98 09/15/19 16:00 97.5 67 18 141/92 (108) 96 Intake and Output 09/15/19 09/16/19 19:00 07:00 Intake Total 875 ml 1325 ml Output Total 600 ml 850 ml Balance 275 ml 475 ml Intake Oral 800 ml 500 ml IV Total 75 ml 825 ml Output Urine Total 600 ml 850 ml Objective General Appearance: WD/WN HEENT: normocephalic Respiratory/Chest: chest wall non-tender, lungs clear Cardiovascular: normal rate, regular rhythm Abdomen: normal bowel sounds, no organomegaly Extremities: no cyanosis Skin: no ulcers 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 Laboratory Tests 09/16/19 05:30: White Blood Count 5.7, Red Blood Count 3.73L, Hemoglobin 11.9L, Hematocrit 33.0L , Mean Corpuscular Volume 89, Mean Corpuscular Hemoglobin 31.9H, Mean Corpuscular Hemoglobin Concent 36.0, Red Cell Distribution Width 10.3L, Platelet Count 243, Mean Platelet Volume 5.4L, Neutrophils (%) (Auto) 54.0, Lymphocytes (%) (Auto) 29.1, Monocytes (%) (Auto) 9.5, Eosinophils (%) (Auto) 6.3H, Basophils (%) (Auto) 1.2, Sodium Level 138, Potassium Level 3.9, Chloride Level 103, Carbon Dioxide Level 25, Anion Gap 10, Blood Urea Nitrogen 17, Creatinine 1.1, Estimat Glomerular Filtration Rate > 60, Glucose Level 133H, Calcium Level 9.0 Current Medications Medications (Trade) Dose Ordered Sig/Jose Anegl Route PRN Reason Start Time Stop Time Status Last Admin Dose Admin Atorvastatin Calcium (Lipitor) 10 mg BEDTIME ORAL 09/13/19 21:00 12/12/19 20:59 09/15/19 20:11 Dextrose (Dextrose 50%) 25 ml Q30M PRN IV Hypoglycemia 09/13/19 22:45 12/12/19 22:44 Dextrose (Dextrose 50%) 50 ml Q30M PRN IV Hypoglycemia 09/13/19 22:45 12/12/19 22:44 Docusate Sodium (Colace) 100 mg TWICE A DAY ORAL 09/16/19 18:00 10/16/19 17:59 Heparin Sodium (Porcine) (Heparin 5000 units/ml) 5,000 units EVERY 12 HOURS SUBQ 09/13/19 21:00 10/28/19 08:59 09/16/19 08:14 Insulin Aspart (NovoLOG) BEFORE MEALS AND HS SUBQ 09/14/19 06:30 12/13/19 06:29 09/15/19 20:21 Losartan Potassium (Cozaar) 50 mg DAILY ORAL 09/14/19 09:00 10/13/19 12:29 09/16/19 08:44 Ondansetron HCl (Zofran) 4 mg Q6H PRN IVP Nausea & Vomiting 09/13/19 18:51 10/13/19 18:50 Pantoprazole (Protonix) 40 mg DAILY ORAL 09/14/19 09:00 10/13/19 08:59 09/16/19 08:16 Polyethylene Glycol (Miralax) 17 gm BEDTIME ORAL 09/16/19 21:00 10/16/19 20:59 Potassium Chloride/Sodium Chloride 1,000 ml @ 75 mls/hr [id number] IV 09/13/19 23:00 10/13/19 22:59 09/15/19 21:23 Promethazine HCl/ Codeine (Phenergan with Codeine) 5 ml Q4H PRN ORAL For Cough 09/13/19 18:51 10/13/19 18:50 Quetiapine Fumarate (SEROqueL) 50 mg BEDTIME ORAL 09/13/19 21:00 10/28/19 20:59 09/15/19 20:11 Sitagliptin Phosphate (Januvia) 100 mg DAILY ORAL 09/14/19 09:00 10/13/19 08:59 09/16/19 08:17 Theophylline (Anuel-Dur) 100 mg EVERY 12 HOURS ORAL 09/13/19 21:00 12/12/19 20:59 09/16/19 08:16 Tramadol HCl (Ultram) 50 mg Q6H PRN ORAL For Pain 09/13/19 18:51 09/20/19 18:50 Elijah Lopez MD Sep 16, 2019 15:31
[2019-09-16 16:00] VITALS: BP 130/89
--- NOTE | 2019-09-16 18:07 | Infectious Diseases Prog Note ---
Assessment/Plan Assessment/Plan Abx: Ceftriaxone 09/11 x1 Assessment: Nausea/vomiting- likely gastritis given hx of PUD- however r/o COVID 19 presentation with GI symptoms -09/11 CT c/ab/p: Mild emphysematous disease with mild scarring and bronchiectasis in the lower lobes. 7 mm nodule in the right middle lobe and 3 mm nodule in the lingula. Very subtle inflammatory stranding about the proximal duodenum (first and second portions) related to a mild duodenitis and/ or given history of peptic ulcer disease. Given vicinity of these subtle inflammatory changes the pancreatic head consider correlation with pancreatic enzymes. Remainder the pancreas is without evidence of peripancreatic inflammatory changes. No free intraperitoneal air or fluid. Bladder wall thickening which may be related to underdistention versus cystitis. Enlarged and heterogeneous prostate likely on the basis of BPH however correlation with prostate exam and PSA recommended. Coronary arterial calcifications and atherosclerotic vascular calcifications. Probable subcentimeter partially calcified splenic artery aneurysm (6 to 7 mm). -CXR: No radiographic evidence of acute cardiopulmonary disease. Afebrile No leukocytosis 09/11 u/a neg Bcx NTD KIMMIE, improving HTN DM2 MDD s/p appendectomy gastric ulcers R shoulder surgery HLD Plan: -Continue to monitor off abx -f/u cx -Monitor CBC/CMP, temperatures -Droplets/contacts/eye shield isolation -COVID19 testing -do not need to wait for testing result for discharge as long as pt is clinically stable and can practice home isolation -If patient, medically stable for discharge can discharge following home isolation until results of COVID 19 is back .They should stay at home and separate themselves from other people in their home (stay in different room, use separate bathroom. Wear a facemask when need to be in the same room. Avoid sharing household items. If COVID19 test is positive, they should continue isolation for 7 days from onset of symptoms or 3 days after fever resolution, which ever is longer. Please refer to [email or web address] Thank you for consulting [facility]. Will continue to follow along with you. Discussed with RN. Subjective Allergies: Coded Allergies: No Known Allergies (Unverified , 09/12/19) Subjective Afebrile. RA. No leukocytosis. still with discomfort no nausea or diarrhea Objective Vital Signs Last 24 Hour Vital Signs Date Time Temp Pulse Resp B/P (MAP) Pulse Ox O2 Delivery O2 Flow Rate FiO2 09/16/19 16:00 98.4 75 18 130/89 (103) 96 09/16/19 12:00 97.3 80 19 133/72 (92) 98 09/16/19 09:00 Room Air 09/16/19 08:44 152/91 09/16/19 08:00 97.9 86 20 152/91 (111) 98 09/16/19 04:00 97.5 63 18 140/78 (98) 98 09/15/19 20:53 Room Air 09/15/19 20:00 98.2 67 17 141/85 (103) 98 Height (Feet): 5 Height (Inches): 5.00 Weight (Pounds): 140 Objective Gen: NAD HEENT: anicteric sclera CV: RRR Resp: RRR, unlabored. no wheezes or crackles. Abd: slightly distended. soft. no rebound. no guarding. Laboratory Tests Test 09/16/19 05:30 White Blood Count 5.7 K/UL (4.8-10.8) Red Blood Count 3.73 M/UL (4.70-6.10) L Hemoglobin 11.9 G/DL (14.2-18.0) L Hematocrit 33.0 % (42.0-52.0) L Mean Corpuscular Volume 89 FL (80-99) Mean Corpuscular Hemoglobin 31.9 PG (27.0-31.0) H Mean Corpuscular Hemoglobin Concent 36.0 G/DL (32.0-36.0) Red Cell Distribution Width 10.3 % (11.6-14.8) L Platelet Count 243 K/UL (150-450) Mean Platelet Volume 5.4 FL (6.5-10.1) L Neutrophils (%) (Auto) 54.0 % (45.0-75.0) Lymphocytes (%) (Auto) 29.1 % (20.0-45.0) Monocytes (%) (Auto) 9.5 % (1.0-10.0) Eosinophils (%) (Auto) 6.3 % (0.0-3.0) H Basophils (%) (Auto) 1.2 % (0.0-2.0) Sodium Level 138 MMOL/L (136-145) Potassium Level 3.9 MMOL/L (3.5-5.1) Chloride Level 103 MMOL/L (98-107) Carbon Dioxide Level 25 MMOL/L (21-32) Anion Gap 10 mmol/L (5-15) Blood Urea Nitrogen 17 mg/dL (7-18) Creatinine 1.1 MG/DL (0.55-1.30) Estimat Glomerular Filtration Rate > 60 mL/min (>60) Glucose Level 133 MG/DL (74-106) H Calcium Level 9.0 MG/DL (8.5-10.1) Current Medications Medications (Trade) Dose Ordered Sig/Jose Angel Route PRN Reason Start Time Stop Time Status Last Admin Dose Admin Atorvastatin Calcium (Lipitor) 10 mg BEDTIME ORAL 09/13/19 21:00 12/12/19 20:59 09/15/19 20:11 Dextrose (Dextrose 50%) 25 ml Q30M PRN IV Hypoglycemia 09/13/19 22:45 12/12/19 22:44 Dextrose (Dextrose 50%) 50 ml Q30M PRN IV Hypoglycemia 09/13/19 22:45 12/12/19 22:44 Docusate Sodium (Colace) 100 mg TWICE A DAY ORAL 09/16/19 18:00 10/16/19 17:59 Heparin Sodium (Porcine) (Heparin 5000 units/ml) 5,000 units EVERY 12 HOURS SUBQ 09/13/19 21:00 10/28/19 08:59 09/16/19 08:14 Insulin Aspart (NovoLOG) BEFORE MEALS AND HS SUBQ 09/14/19 06:30 12/13/19 06:29 09/15/19 20:21 Losartan Potassium (Cozaar) 50 mg DAILY ORAL 09/14/19 09:00 10/13/19 12:29 09/16/19 08:44 Ondansetron HCl (Zofran) 4 mg Q6H PRN IVP Nausea & Vomiting 09/13/19 18:51 10/13/19 18:50 Pantoprazole (Protonix) 40 mg DAILY ORAL 09/14/19 09:00 10/13/19 08:59 09/16/19 08:16 Polyethylene Glycol (Miralax) 17 gm BEDTIME ORAL 09/16/19 21:00 10/16/19 20:59 Potassium Chloride/Sodium Chloride 1,000 ml @ 75 mls/hr [id number] IV 09/13/19 23:00 10/13/19 22:59 09/15/19 21:23 Promethazine HCl/ Codeine (Phenergan with Codeine) 5 ml Q4H PRN ORAL For Cough 09/13/19 18:51 10/13/19 18:50 Quetiapine Fumarate (SEROqueL) 50 mg BEDTIME ORAL 09/13/19 21:00 10/28/19 20:59 09/15/19 20:11 Sitagliptin Phosphate (Januvia) 100 mg DAILY ORAL 09/14/19 09:00 10/13/19 08:59 09/16/19 08:17 Theophylline (Anuel-Dur) 100 mg EVERY 12 HOURS ORAL 09/13/19 21:00 12/12/19 20:59 09/16/19 08:16 Tramadol HCl (Ultram) 50 mg Q6H PRN ORAL For Pain 09/13/19 18:51 09/20/19 18:50 Ximena Vail MD Sep 16, 2019 18:07
--- NOTE | 2019-09-16 18:52 | Internal Med Progress Note ---
Subjective Date of Service: Sep 16, 2019 Physician Name BlancaJames Attending Physician Juan Garnett MD Current Medications Medications (Trade) Dose Ordered Sig/Jose Angel Route PRN Reason Start Time Stop Time Status Last Admin Dose Admin Atorvastatin Calcium (Lipitor) 10 mg BEDTIME ORAL 09/13/19 21:00 12/12/19 20:59 09/15/19 20:11 Dextrose (Dextrose 50%) 25 ml Q30M PRN IV Hypoglycemia 09/13/19 22:45 12/12/19 22:44 Dextrose (Dextrose 50%) 50 ml Q30M PRN IV Hypoglycemia 09/13/19 22:45 12/12/19 22:44 Docusate Sodium (Colace) 100 mg TWICE A DAY ORAL 09/16/19 18:00 10/16/19 17:59 Heparin Sodium (Porcine) (Heparin 5000 units/ml) 5,000 units EVERY 12 HOURS SUBQ 09/13/19 21:00 10/28/19 08:59 09/16/19 08:14 Insulin Aspart (NovoLOG) BEFORE MEALS AND HS SUBQ 09/14/19 06:30 12/13/19 06:29 09/15/19 20:21 Losartan Potassium (Cozaar) 50 mg DAILY ORAL 09/14/19 09:00 10/13/19 12:29 09/16/19 08:44 Ondansetron HCl (Zofran) 4 mg Q6H PRN IVP Nausea & Vomiting 09/13/19 18:51 10/13/19 18:50 Pantoprazole (Protonix) 40 mg DAILY ORAL 09/14/19 09:00 10/13/19 08:59 09/16/19 08:16 Polyethylene Glycol (Miralax) 17 gm BEDTIME ORAL 09/16/19 21:00 10/16/19 20:59 Potassium Chloride/Sodium Chloride 1,000 ml @ 75 mls/hr [id number] IV 09/13/19 23:00 10/13/19 22:59 09/15/19 21:23 Promethazine HCl/ Codeine (Phenergan with Codeine) 5 ml Q4H PRN ORAL For Cough 09/13/19 18:51 10/13/19 18:50 Quetiapine Fumarate (SEROqueL) 50 mg BEDTIME ORAL 09/13/19 21:00 10/28/19 20:59 09/15/19 20:11 Sitagliptin Phosphate (Januvia) 100 mg DAILY ORAL 09/14/19 09:00 10/13/19 08:59 09/16/19 08:17 Theophylline (Anuel-Dur) 100 mg EVERY 12 HOURS ORAL 09/13/19 21:00 12/12/19 20:59 09/16/19 08:16 Tramadol HCl (Ultram) 50 mg Q6H PRN ORAL For Pain 09/13/19 18:51 09/20/19 18:50 Allergies: Coded Allergies: No Known Allergies (Unverified , 09/12/19) ROS Limited/Unobtainable: No Constitutional: Reports: no symptoms HEENT: Reports: no symptoms Cardiovascular: Reports: no symptoms Respiratory: Reports: no symptoms Gastrointestinal/Abdominal: Reports: no symptoms Genitourinary: Reports: no symptoms Neurologic/Psychiatric: Reports: no symptoms Subjective 74 YO M admitted with epigastric pain. Cover for Int Donta-Dr Garnett Objective Last Vital Signs Date Time Temp Pulse Resp B/P (MAP) Pulse Ox O2 Delivery O2 Flow Rate FiO2 09/16/19 16:00 98.4 75 18 130/89 (103) 96 09/16/19 09:00 Room Air Laboratory Tests Test 09/16/19 05:30 White Blood Count 5.7 K/UL (4.8-10.8) Red Blood Count 3.73 M/UL (4.70-6.10) L Hemoglobin 11.9 G/DL (14.2-18.0) L Hematocrit 33.0 % (42.0-52.0) L Mean Corpuscular Volume 89 FL (80-99) Mean Corpuscular Hemoglobin 31.9 PG (27.0-31.0) H Mean Corpuscular Hemoglobin Concent 36.0 G/DL (32.0-36.0) Red Cell Distribution Width 10.3 % (11.6-14.8) L Platelet Count 243 K/UL (150-450) Mean Platelet Volume 5.4 FL (6.5-10.1) L Neutrophils (%) (Auto) 54.0 % (45.0-75.0) Lymphocytes (%) (Auto) 29.1 % (20.0-45.0) Monocytes (%) (Auto) 9.5 % (1.0-10.0) Eosinophils (%) (Auto) 6.3 % (0.0-3.0) H Basophils (%) (Auto) 1.2 % (0.0-2.0) Sodium Level 138 MMOL/L (136-145) Potassium Level 3.9 MMOL/L (3.5-5.1) Chloride Level 103 MMOL/L (98-107) Carbon Dioxide Level 25 MMOL/L (21-32) Anion Gap 10 mmol/L (5-15) Blood Urea Nitrogen 17 mg/dL (7-18) Creatinine 1.1 MG/DL (0.55-1.30) Estimat Glomerular Filtration Rate > 60 mL/min (>60) Glucose Level 133 MG/DL (74-106) H Calcium Level 9.0 MG/DL (8.5-10.1) Intake and Output 09/15/19 09/16/19 19:00 07:00 Intake Total 875 ml 1325 ml Output Total 600 ml 850 ml Balance 275 ml 475 ml Intake Oral 800 ml 500 ml IV Total 75 ml 825 ml Output Urine Total 600 ml 850 ml Objective PHYSICAL EXAMINATION: GENERAL: The patient is awake and responsive, in no acute distress. HEAD AND NECK: Pupils are equal and reactive. Extraocular movements are intact. Neck was supple. No JVD. LUNGS: Good air entry. No wheeze or rales. HEART: S1, S2. Regular rhythm. No gallops. ABDOMEN: Soft and nondistended. Epigastric tenderness on deep palpation. No rebound tenderness. No fluid shift. EXTREMITIES: No cyanosis, clubbing, or edema NEUROLOGIC: Cranial nerves II through XII grossly normal. Motor is 5/5 in all extremities. Gait is intact. RECTAL/GENITOURINARY: Refused and deferred. PSYCHIATRIC: Mood and affect is intact. Assessment/Plan Assessment/Plan ASSESSMENT: 1. Epigastric pain/duodenitis 2. Pulmonary nodule. 3. Hypertension. 4. Diabetes type 2. 5. Dyslipidemia. 6. Depression. 7. Acute kidney injury on chronic renal insufficiency. 8. Dehydration. 9. Hypokalemia. 10. Bronchiectasis PLAN: 1. Med/surg 2. We will start the patient on IV hydration. 3. tolerating diabetic diet. 4. Monitor blood glucose level. 5. DVT prophylaxis with heparin subcutaneous. 6. Code status, Full Code. 7. We will follow up with Pulmonary consultation with Dr. Lopez as well as GI consultation with Dr. Sanchez. 8. Discharge planning James Rios MD Sep 16, 2019 18:52
[2019-09-16] MEDS: NS w/KCl 20mEq 1000ml 1,000 ML IV SCH (19:12)
[2019-09-16] MEDS: Docusate 100mg cap ORAL SCH (19:12)
[2019-09-16 20:00] VITALS: BP 136/74
[2019-09-16] MEDS ORDERED: Miralax 17gm pkt ORAL SCH (21:00)
[2019-09-17 00:31] VITALS: BP 126/94
[2019-09-17] MEDS: NS w/KCl 20mEq 1000ml 1,000 ML IV SCH (06:11)
[2019-09-17] MEDS: NovoLOG Insulin Flexpen SUBQ SCH ×2 (06:19→11:30)
[2019-09-17 06:32] LABS: % IRON SATURATION 23 % (15-50); IRON 58 ug/dL (50-175); TOTAL IRON BINDING CAPACITY 251 ug/dL (250-450)
[2019-09-17 06:35] LABS: ALANINE AMINOTRANSFERASE 49 U/L (12-78); ALBUMIN 3.7 G/DL (3.4-5.0); ALBUMIN/GLOBULIN RATIO 1.1 (1.0-2.7); ALKALINE PHOSPHATASE 52 U/L (46-116); AMYLASE 54 U/L (25-115); ANION GAP 15 mmol/L (5-15); ASPARTATE AMINO TRANSFERASE 42 U/L (15-37); BILIRUBIN,TOTAL 0.5 MG/DL (0.2-1.0); BLOOD UREA NITROGEN 21 mg/dL (7-18); CARBON DIOXIDE 21 MMOL/L (21-32); CHLORIDE 106 MMOL/L (98-107); CREATININE 1.3 MG/DL (0.55-1.30); POTASSIUM 4.1 MMOL/L (3.5-5.1); SODIUM 142 MMOL/L (136-145)
[2019-09-17 06:39] LABS: HEMATOCRIT 35.1 % (42.0-52.0); HEMOGLOBIN 12.5 G/DL (14.2-18.0); LYMPHOCYTES % (AUTO) 28.2 % (20.0-45.0); MEAN CORPUSCULAR VOLUME 89 FL (80-99); MONOCYTES % (AUTO) 8.2 % (1.0-10.0); NEUTROPHILS % (AUTO) 57.7 % (45.0-75.0); PLATELET COUNT 275 K/UL (150-450); RED BLOOD COUNT 3.94 M/UL (4.70-6.10); RED CELL DISTRIBUTION WIDTH 10.2 % (11.6-14.8); WHITE BLOOD COUNT 6.3 K/UL (4.8-10.8)
[2019-09-17 08:00] VITALS: BP 116/81
[2019-09-17] MEDS: Docusate 100mg cap ORAL SCH (08:45)
[2019-09-17] MEDS: Theophylline ER 100mg ORAL SCH (08:45)
[2019-09-17] MEDS: Heparin 5000 units/ml inj SUBQ SCH (08:46)
--- NOTE | 2019-09-17 11:11 | General Progress Note ---
Assessment/Plan Problem List: (1) Duodenitis ICD Codes: K29.80 - Duodenitis without bleeding SNOMED: 62726547 (2) Pancreatitis ICD Codes: K85.90 - Acute pancreatitis without necrosis or infection, unspecified SNOMED: 92696452 Qualifiers: Qualified Codes: K85.90 - Acute pancreatitis without necrosis or infection, unspecified (3) Pulmonary nodule ICD Codes: R91.1 - Solitary pulmonary nodule SNOMED: 689309922 (4) History of hypertension ICD Codes: Z86.79 - Personal history of other diseases of the circulatory system SNOMED: 426436120 (5) Diabetes mellitus ICD Codes: E11.9 - Type 2 diabetes mellitus without complications SNOMED: 04098924 (6) History of splenectomy ICD Codes: Z90.81 - Acquired absence of spleen SNOMED: 202132344 Assessment/Plan: ppi bowel regimen anemia work up repeat labs will fu no elevated lipse tolerating diet hold GI procedures for now Subjective ROS Limited/Unobtainable: Yes Allergies: Coded Allergies: No Known Allergies (Unverified , 09/12/19) Objective Last 24 Hour Vital Signs Date Time Temp Pulse Resp B/P (MAP) Pulse Ox O2 Delivery O2 Flow Rate FiO2 09/17/19 09:39 Room Air 09/17/19 08:00 97.9 18 116/81 (93) 96 09/17/19 00:31 97.9 64 16 126/94 (105) 97 09/16/19 21:00 Room Air 09/16/19 20:00 98.1 74 18 136/74 (94) 98 09/16/19 16:00 98.4 75 18 130/89 (103) 96 09/16/19 12:00 97.3 80 19 133/72 (92) 98 Intake and Output 09/16/19 09/17/19 19:00 07:00 Intake Total 800 ml 1425 ml Output Total 600 ml Balance 200 ml 1425 ml Intake Oral 800 ml 600 ml IV Total 825 ml Output Urine Total 600 ml # Voids 3 # Bowel Movements 2 Laboratory Tests 09/17/19 00:20: Stool Occult Blood [Pending] 09/17/19 05:30: White Blood Count 6.3, Red Blood Count 3.94L, Hemoglobin 12.5L, Hematocrit 35.1L , Mean Corpuscular Volume 89, Mean Corpuscular Hemoglobin 31.8H, Mean Corpuscular Hemoglobin Concent 35.7, Red Cell Distribution Width 10.2L, Platelet Count 275, Mean Platelet Volume 5.7L, Neutrophils (%) (Auto) 57.7, Lymphocytes (%) (Auto) 28.2, Monocytes (%) (Auto) 8.2, Eosinophils (%) (Auto) 5.0H, Basophils (%) (Auto) 1.0, Sodium Level 142, Potassium Level 4.1, Chloride Level 106, Carbon Dioxide Level 21, Anion Gap 15, Blood Urea Nitrogen 21H, Creatinine 1.3, Estimat Glomerular Filtration Rate 54.0, Glucose Level 150H, Calcium Level 9.0, Iron Level 58, Total Iron Binding Capacity 251, Percent Iron Saturation 23, Unsaturated Iron Binding 193, Total Bilirubin 0.5, Aspartate Amino Transf (AST/SGOT) 42H, Alanine Aminotransferase (ALT/SGPT) 49, Alkaline Phosphatase 52, Total Protein 7.0, Albumin 3.7, Globulin 3.3, Albumin/Globulin Ratio 1.1, Amylase Level 54, Lipase 238 Height (Feet): 5 Height (Inches): 5.00 Weight (Pounds): 140 General Appearance: no apparent distress EENT: normal ENT inspection Neck: supple Cardiovascular: normal rate Respiratory/Chest: decreased breath sounds Abdomen: normal bowel sounds, non tender, soft Extremities: non-tender Kian Sanchez MD Sep 17, 2019 11:11
[2019-09-17 12:24] VITALS: BP 145/91
[2019-09-17 12:32] VITALS: BP 145/91
[2019-09-17] MEDS: Losartan 50mg tab ORAL SCH (12:32)
--- NOTE | 2019-09-17 13:18 | Pulmonology Progress Note ---
Assessment/Plan Problems: (1) Duodenitis (2) Intractable abdominal pain (3) Pulmonary nodule (4) Bronchiectasis (5) Diabetes mellitus (6) History of hypertension (7) History of splenectomy (8) Depression Assessment/Plan COVID negative respiratory treatment check sputum symptomatic treatment BC negative, no other cultures sent pain management. from ID note: -If patient, medically stable for discharge can discharge following home isolation until results of COVID 19 is back .They should stay at home and separate themselves from other people in their home (stay in different room, use separate bathroom. Wear a facemask when need to be in the same room. Avoid sharing household items. If COVID19 test is positive, they should continue isolation for 7 days from onset of symptoms or 3 days after fever resolution, which ever is longer. Please refer to [email or web address] Subjective ROS Limited/Unobtainable: No Constitutional: Reports: no symptoms HEENT: Repors: no symptoms Allergies: Coded Allergies: No Known Allergies (Unverified , 09/12/19) Objective Last 24 Hour Vital Signs Date Time Temp Pulse Resp B/P (MAP) Pulse Ox O2 Delivery O2 Flow Rate FiO2 09/17/19 12:32 145/91 09/17/19 12:24 97.1 77 18 145/91 (109) 98 09/17/19 09:39 Room Air 09/17/19 08:00 97.9 18 116/81 (93) 96 09/17/19 00:31 97.9 64 16 126/94 (105) 97 09/16/19 21:00 Room Air 09/16/19 20:00 98.1 74 18 136/74 (94) 98 09/16/19 16:00 98.4 75 18 130/89 (103) 96 Intake and Output 09/16/19 09/17/19 19:00 07:00 Intake Total 800 ml 1425 ml Output Total 600 ml Balance 200 ml 1425 ml Intake Oral 800 ml 600 ml IV Total 825 ml Output Urine Total 600 ml # Voids 3 # Bowel Movements 2 Objective General Appearance: WD/WN HEENT: normocephalic Respiratory/Chest: chest wall non-tender, lungs clear Cardiovascular: normal rate, regular rhythm Abdomen: normal bowel sounds, no organomegaly Extremities: no cyanosis Skin: no ulcers 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 Microbiology Date/Time Source Procedure Growth Status 09/14/19 20:30 Nasopharynx Coronavirus COVID-19 PCR ([facility]) - Final Complete Laboratory Tests 09/17/19 00:20: Stool Occult Blood Positive 09/17/19 05:30: White Blood Count 6.3, Red Blood Count 3.94L, Hemoglobin 12.5L, Hematocrit 35.1L , Mean Corpuscular Volume 89, Mean Corpuscular Hemoglobin 31.8H, Mean Corpuscular Hemoglobin Concent 35.7, Red Cell Distribution Width 10.2L, Platelet Count 275, Mean Platelet Volume 5.7L, Neutrophils (%) (Auto) 57.7, Lymphocytes (%) (Auto) 28.2, Monocytes (%) (Auto) 8.2, Eosinophils (%) (Auto) 5.0H, Basophils (%) (Auto) 1.0, Sodium Level 142, Potassium Level 4.1, Chloride Level 106, Carbon Dioxide Level 21, Anion Gap 15, Blood Urea Nitrogen 21H, Creatinine 1.3, Estimat Glomerular Filtration Rate 54.0, Glucose Level 150H, Calcium Level 9.0, Iron Level 58, Total Iron Binding Capacity 251, Percent Iron Saturation 23, Unsaturated Iron Binding 193, Total Bilirubin 0.5, Aspartate Amino Transf (AST/SGOT) 42H, Alanine Aminotransferase (ALT/SGPT) 49, Alkaline Phosphatase 52, Total Protein 7.0, Albumin 3.7, Globulin 3.3, Albumin/Globulin Ratio 1.1, Amylase Level 54, Lipase 238 Current Medications Medications (Trade) Dose Ordered Sig/Jose Angel Route PRN Reason Start Time Stop Time Status Last Admin Dose Admin Atorvastatin Calcium (Lipitor) 10 mg BEDTIME ORAL 09/13/19 21:00 12/12/19 20:59 09/16/19 21:45 Dextrose (Dextrose 50%) 25 ml Q30M PRN IV Hypoglycemia 09/13/19 22:45 12/12/19 22:44 Dextrose (Dextrose 50%) 50 ml Q30M PRN IV Hypoglycemia 09/13/19 22:45 12/12/19 22:44 Docusate Sodium (Colace) 100 mg TWICE A DAY ORAL 09/16/19 18:00 10/16/19 17:59 09/17/19 08:45 Heparin Sodium (Porcine) (Heparin 5000 units/ml) 5,000 units EVERY 12 HOURS SUBQ 09/13/19 21:00 10/28/19 08:59 09/17/19 08:46 Insulin Aspart (NovoLOG) BEFORE MEALS AND HS SUBQ 09/14/19 06:30 12/13/19 06:29 09/17/19 06:19 Losartan Potassium (Cozaar) 50 mg DAILY ORAL 09/14/19 09:00 10/13/19 12:29 09/17/19 12:32 Ondansetron HCl (Zofran) 4 mg Q6H PRN IVP Nausea & Vomiting 09/13/19 18:51 10/13/19 18:50 Pantoprazole (Protonix) 40 mg DAILY ORAL 09/14/19 09:00 10/13/19 08:59 09/17/19 08:45 Polyethylene Glycol (Miralax) 17 gm BEDTIME ORAL 09/16/19 21:00 10/16/19 20:59 09/16/19 21:44 Potassium Chloride/Sodium Chloride 1,000 ml @ 75 mls/hr [id number] IV 09/13/19 23:00 10/13/19 22:59 09/17/19 06:11 Promethazine HCl/ Codeine (Phenergan with Codeine) 5 ml Q4H PRN ORAL For Cough 09/13/19 18:51 10/13/19 18:50 Quetiapine Fumarate (SEROqueL) 50 mg BEDTIME ORAL 09/13/19 21:00 10/28/19 20:59 09/16/19 21:44 Sitagliptin Phosphate (Januvia) 100 mg DAILY ORAL 09/14/19 09:00 10/13/19 08:59 09/17/19 08:45 Theophylline (Anuel-Dur) 100 mg EVERY 12 HOURS ORAL 09/13/19 21:00 12/12/19 20:59 09/17/19 08:45 Tramadol HCl (Ultram) 50 mg Q6H PRN ORAL For Pain 09/13/19 18:51 09/20/19 18:50 Elijah Lopez MD Sep 17, 2019 13:18
--- NOTE | 2019-09-18 16:27 | Discharge Summary ---
Discharge Summary Discharge Summary _ DATE OF ADMISSION: 09/13/2019 DATE OF DISCHARGE: 09/17/2019 DISCHARGED BY: Dr. Garnett REASON FOR ADMISSION: 74 years old male with past medical history significant for hypertension, dyslipidemia, borderline diabetes, GERD, depression, presented to emergency room complaining of nausea, vomiting, and coughing for the past few days. Patient denied fever or chills. Patient denied chest pain or shortness of breath. CT scan of the chest , abdomen and pelvis revealed two pulmonary nodules and mild emphysematous disease with mild scaring and bronchiectasis in the lower lobes. Laboratory work-up revealed mild leukocytosis WBC 13.1, stable hemoglobin, hematocrit and platelet count. Potassium 3.4. BUN 33, creatinine 1.6. Glucose 238. Stable LFT, total bilirubin 1.5, direct bilirubin 0.2. Lipase 148. Troponin -0 0.003. pro BNP 154. EKG revealed sinus rhythm , no acute ischemic changes. Lactic acid 2.8, repeated 2.2. Urinalysis revealed +2 protein , no evidence of urinary tract infection . Chest x-ray demonstrated no acute cardiopulmonary pathology. In emergency department patient received 1 L of fluid , analgesic, Pepcid, Zofran and admitted for further management. CONSULTANTS: pulmonary Dr. Lopez ID specialist Dr. Alice[place] GI specialist Dr. Sanchez [facility]: Patient admitted to monitored floor initially. Patient started on IV fluids and clear liquid diet. DVT prophylaxis provided. Patient started on proton pump inhibitors. Bowel regimen instituted. Lipase was not elevated , unlikely pancreatitis. Diet was slowly advanced as tolerated. Patient was able to tolerate diet. Stool for occult blood was positive. Hemoglobin and hematocrit were closely monitored with goal to keep hemoglobin above 7 . Hemoglobin 12.3 , hematocrit 34.9 prior to discharge Given that hemoglobin and hematocrit remained stable , GI specialist recommended to hold GI procedure for now and follow-up with GI specialist as outpatient. ID specialist followed. Patient was suspected with COVID 19 infection with initial GI presentation. Patient remained afebrile, no leukocytosis. Patient was manicured off antibiotics. COVID 19 not detected. Blood cultures were negative. Supplemental oxygen provided and titrated to keep pulse oximetry above 92%. Nebulizing treatment with bronchodilator provided. Blood sugar was managed with metformin and Januvia. Sliding scale of insulin was on board as needed. Blood pressure was managed with angiotensin receptor jerry. Statin continued. Potassium was replaced. Renal parameters and electrolytes were closely monitored, electrolytes corrected as needed, and nephrotoxic's were avoided . Creatinine from 1.6 down to 1.3 and BUN from 33 down to 21. Patient clinically stabilized and was ready for discharge . Patient was recommended to repeat CT of the chest in 6 months. FINAL DIAGNOSES: Epigastric pain most likely secondary to peptic ulcer disease Duodenitis Bronchiectasis Suspected COVID 19 infection - ruled out Emphysema Pulmonary nodule History of splenectomy Hypertension Diabetes mellitus type 2 Dyslipidemia Acute kidney injury on chronic renal insufficiency, likely due to dehydration Dehydration Hypokalemia Depression DISCHARGE MEDICATIONS: See Medication Reconciliation list. DISCHARGE INSTRUCTIONS: Patient was discharged home. Follow up with primary care provider in one week. I have been assigned to dictate discharge summary for this account. I was not involved in the patient's management. Gilma Cartwright NP Sep 18, 2019 16:27
== END 2019-09-17 15:27 | disposition home or self-care (01) | DRG 392 ==
LOC: EDBD 20:07 → EMR 21:07 → 2E 22:18 → EDBEDREQ 22:22 → 2E 09-13 06:35 → 4E 09-13 18:47
DX: K29.80 Duodenitis without bleeding (principal); N17.9 Acute kidney failure, unspecified; R91.1 Solitary pulmonary nodule; E78.5 Hyperlipidemia, unspecified; E86.0 Dehydration; E87.6 Hypokalemia; I12.9 Hypertensive chronic kidney disease with stage 1 through stage 4 chronic kidney disease, or unspecified chronic kidney disease; N18.9 Chronic kidney disease, unspecified; K21.9 Gastro-esophageal reflux disease without esophagitis; R10.13 Epigastric pain; J47.9 Bronchiectasis, uncomplicated; J43.9 Emphysema, unspecified; Z90.81 Acquired absence of spleen; F32.9 Major depressive disorder, single episode, unspecified; E11.22 Type 2 diabetes mellitus with diabetic chronic kidney disease
CPT/HCPCS: 36415; 71045; 71250; 74176; 80048; 80053; 81003; 82150; 82248; 82270; 82962; 83540; 83550; 83605; 83690; 83735; 83880; 84100; 84484; 85025; 85651; 86140; 87040; 87070; 87205; 87635; 93005; 96365; 96375; 99285; J1815; J2405; J7030